=== PATIENT | male | born 1970 | race Caucasian/White ===

== ENCOUNTER 2020-12-01 06:30 | Emergency (ER) | payer SELFPAY ==
[2020-12-01] MEDS ORDERED: ONDANSETRON 4 MG/2 ML VIAL ONE (08:11)
[2020-12-01] MEDS ORDERED: MORPHINE 4 MG/ML SYR ONE (08:11)
--- NOTE | 2020-12-01 08:13 | RAD REPORT ---
EXAM DESCRIPTION: [place] Single View12/01/2020 7:30 am CLINICAL HISTORY: sob COMPARISON: November 29, 2020 FINDINGS: The lungs appear clear of acute infiltrate. The heart is normal size IMPRESSION: No acute abnormalities displayed
[2020-12-01 08:18] LABS: Protime INR 0.98
[2020-12-01 08:30] LABS: Absolute Lymphocytes (CBC) 0.8 K/uL (0.7-4.9); Basophils % 0.4 % (0-1.3); Hematocrit 48.1 % (39.6-49.0); Lymphocytes % 8.3 % (15.3-44.8); MPV 7.7 fL (7.6-11.3); RBC Red Blood Cell Count 5.45 M/uL (4.33-5.43)
[2020-12-01 08:34] LABS: ALT/SGPT 27 U/L (12-78); AST/SGOT 14 U/L (15-37); Albumin 3.8 g/dL (3.4-5.0); Alkaline Phosphatase 70 U/L (45-117); BUN Blood Urea Nitrogen 10 mg/dL (7-18); Bicarbonate 25 mmol/L (21-32); Bilirubin Direct 0.2 mg/dL (0-0.2); Bilirubin Total 0.7 mg/dL (0.2-1.0); Glucose Level 106 mg/dL (74-106); Magnesium 2.1 mg/dL (1.8-2.4); NT PRO-BNP 14 pg/mL (<125); Potassium 4.6 mmol/L (3.5-5.1); Protein, Total 7.5 g/dL (6.4-8.2); Sodium Level 143 mmol/L (136-145); Troponin (Emerg Dept Use Only) < 0.02 ng/mL (0.0-0.045)
[2020-12-01 09:02] LABS: Blood Morphology Comment NOT SEEN (NOT SEEN); Platelet Estimate ADEQ; Platelets, Giant PRESENT
--- NOTE | 2020-12-01 09:24 | RAD REPORT ---
EXAM DESCRIPTION: CT - Stone Protocol - 12/01/2020 9:00 am CLINICAL HISTORY: Abdominal pain. Left flank pain COMPARISON: None. TECHNIQUE: Computed axial tomography of the abdomen pelvis was obtained without oral or IV contrast. Lack of IV and oral contrast limits evaluation of solid organs, bowel, and vessels. Coronal reformat chris images were obtained and reviewed. All CT scans are performed using dose optimization technique as appropriate and may include automated exposure control or mA/KV adjustment according to patient size. FINDINGS: A renal calculus is not seen. An ureteral calculus is not noted. A bladder calculus is not present. The liver, spleen, pancreas and adrenals appear grossly normal There is no evidence of diverticulitis. Mild stranding within the mesentery of the left abdomen. A couple of small calcifications are present . Small inguinal hernias. Small umbilical hernia IMPRESSION: Negative for a genitourinary calculus Mild stranding within the mesentery of the left abdomen may indicate a mesenteritis
[2020-12-01] MEDS ORDERED: FENTANYL CITR 100 MCG/2 ML ONE (09:57)
[2020-12-01] MEDS ORDERED: DIAZEPAM 10 MG/2 ML INJ SYRINGE ONE (09:58)
[2020-12-01 12:55] LABS: Urine Blood Negative (Negative); Urine Glucose Negative (Negative); Urine Protein Negative (Negative); Urine Specific Gravity >=1.030 (1.005-1.030); Urine pH 5.5 (5.0-7.0)
--- NOTE | 2020-12-01 13:02 | EDPHYS ---
Physician Documentation [facility] Name: Ollie Cardona Age: 50 yrs Sex: Male : 1970 Arrival Date: 12/01/2020 Time: 06:34 Bed 13 Private MD: ED Physician Juma Miller HPI: 12/01 07:03 This 50 yrs old Male presents to ER via Wheelchair with complaints of Back jmm Pain, Cough. 07:03 Onset: The symptoms/episode began/occurred gradually, 1 week(s) ago. The pain does not jmm radiate. Associated signs and symptoms: Pertinent positives: Cough. This is this is a 50-year-old male no chronic medical conditions the presents emerge department with complaints of chronic cough which has been along 2 to 3months. Patient states that he recently finished a course of antibiotics. Also states he is tested negative for Covid. Patient states over the past week is developed lower back pain exacerbated by the cough. This morning patient after an episode of coughing developed more intense pain. Denies radiation of pain, denies urinary or fecal issues, fever. Historical: - Allergies: 06:58 No Known Allergies; df1 - Home Meds: 06:58 None [Active]; df1 - PMHx: 06:58 None; df1 - PSHx: 06:58 ACL left knee; Appendectomy; df1 - Immunization history:: Adult Immunizations not up to date, Client reports having NOT received the Covid vaccine. - Social history:: Smoking status: Patient denies any tobacco usage or history of. Patient/guardian denies using alcohol, street drugs. ROS: 07:03 Constitutional: Negative for fever, chills, and weight loss, Cardiovascular: Negative jmm for chest pain, palpitations, and edema. 07:03 Respiratory: Positive for cough. 07:03 Back: Positive for pain with movement. 07:03 All other systems are negative. Exam: 07:03 Constitutional: This is a well developed, well nourished patient who is awake, alert, jmm and in no acute distress. Head/Face: atraumatic. Eyes: EOMI, no conjunctival erythema appreciated ENT: Moist Mucus Membranes Neck: Trachea midline, Supple Chest/axilla: Normal chest wall appearance and motion. Cardiovascular: Regular rate and rhythm. No edema appreciated Respiratory: Normal respirations, no respiratory distress appreciated Abdomen/GI: Non distended, soft 07:03 Back: pain, that is moderate, of the lumbar area. 07:03 Musculoskeletal/extremity: ROM: intact in all extremities. 07:03 Skin: Appearance: Color: normal in color. 07:03 Neuro: Orientation: is normal, Mentation: is normal, Memory: is normal. 07:03 Psych: Behavior/mood is pleasant, cooperative. Vital Signs: 06:56 BP 130 / 81; Pulse 94; Resp 24; Temp 97.7(O); Pulse Ox 95% on R/A; Weight 108.86 kg; df1 Height 6 ft. 2 in. (187.96 cm); Pain 10/10; 07:48 BP 130 / 81; Pulse 81; Resp 20; Pulse Ox 93% ; Pain 10/10; tc5 10:09 BP 109 / 75; Pulse 81; Resp 16; Pulse Ox 92% ; Pain 4/10; tc5 11:15 BP 109 / 75; Pulse 67; Resp 16; Pulse Ox 91% ; tc5 12:16 BP 110 / 73; Pulse 63; Resp 16; Pulse Ox 95% ; Pain 0/10; tc5 13:28 BP 110 / 73; Pulse 61; Resp 18; Pulse Ox 95% ; Pain 0/10; tc5 06:56 Body Mass Index 30.81 (108.86 kg, 187.96 cm) df1 MDM: 07:03 Patient medically screened. carey 12:55 Data reviewed: vital signs, nurses notes. Counseling: I had a detailed discussion with carey the patient and/or guardian regarding: the historical points, exam findings, and any diagnostic results supporting the discharge/admit diagnosis, lab results, radiology results, the need for outpatient follow up, to return to the emergency department if symptoms worsen or persist or if there are any questions or concerns that arise at home. ED course: Pain is relieved in the ED. Patient describes the pain is spasming that grabs him. I do not suspect kidney stone, obstruction, cauda equina, dissection. . 12/01 07:03 Order name: Basic Metabolic Panel; Complete Time: 08:34 [facility] 12/01 07:03 Order name: CBC with Diff; Complete Time: 09:06 [facility] 12/01 07:03 Order name: LFT's; Complete Time: 08:34 [facility] 12/01 07:03 Order name: Magnesium; Complete Time: 08:34 [facility] 12/01 07:03 Order name: NT PRO-BNP; Complete Time: 08:34 [facility] 12/01 07:03 Order name: PT-INR; Complete Time: 08:32 [facility] 12/01 07:03 Order name: Troponin (emerg Dept Use Only); Complete Time: 08:34 [facility] 12/01 07:03 Order name: XRAY Chest (1 view); Complete Time: 08:15 [facility] 12/01 07:03 Order name: D-Dimer; Complete Time: 08:32 [facility] 12/01 08:19 Order name: SARS-COV-2 RT PCR; Complete Time: 09:16 [facility] 12/01 08:33 Order name: CT Stone Protocol; Complete Time: 09:25 [facility] 12/01 09:01 Order name: Manual Differential; Complete Time: 09:06 [facility] 12/01 12:55 Order name: Urine Dipstick-Ancillary; Complete Time: 13:03 [facility] 12/01 07:03 Order name: EKG; Complete Time: 07:04 [facility] 12/01 07:03 Order name: Cardiac monitoring; Complete Time: 08:09 [facility] 12/01 07:03 Order name: EKG - Nurse/Tech; Complete Time: 07:58 [facility] 12/01 07:03 Order name: IV Saline Lock; Complete Time: 08:09 [facility] 12/01 07:03 Order name: Labs collected and sent; Complete Time: 08:09 [facility] 12/01 07:03 Order name: O2 Per Protocol [facility] 12/01 07:03 Order name: O2 Sat Monitoring [facility] 12/01 09:51 Order name: Urine Dipstick-Ancillary (obtain specimen); Complete Time: 13:28 jmm Administered Medications: 08:08 Drug: Zofran (Ondansetron) 4 mg Route: IVP; Site: right hand; tc5 09:45 Follow up: Response: No adverse reaction tc5 08:09 Drug: morphine 4 mg Route: IVP; Site: right hand; tc5 09:46 Follow up: Response: No adverse reaction; Pain is unchanged, physician notified tc5 09:45 Drug: fentaNYL (PF) 50 mcg Route: IVP; Site: right hand; tc5 13:29 Follow up: Response: No adverse reaction tc5 09:45 Drug: Valium (diazepam) 5 mg Route: IVP; Site: right hand; tc5 13:28 Follow up: BP 110 / 73; Pulse 61 bpm; Resp 18 bpm; Pulse Ox 95% ; Pain 0/10 Adult tc5 Disposition Summary: 12/01/20 13:02 Discharge Ordered Location: Home jmm Condition: Stable jmm Diagnosis - Cough jmm - Muscle spasm of back jmm Followup: jmm - With: Private Physician - When: 2 - 3 days - Reason: Recheck today's complaints, Continuance of care, Re-evaluation by your physician Discharge Instructions: - Discharge Summary Sheet jmm - Muscle Cramps and Spasms jmm - Cough, Adult jmm Forms: - Medication Reconciliation Form jmm - Thank You Letter jmm - Antibiotic Education jmm - Prescription Opioid Use jmm Prescriptions: - Zanaflex 4 mg Oral Tablet - take 1 tablet by ORAL route every 8 hours As needed; 20 tablet; Refills: 0, jmm Product Selection Permitted Addendum: 12/04/2020 07:12 Co-signature as Attending Physician, Juma Miller MD. [facility] Signatures: Dispatcher [employer] EDMS Arnulfo Canales PA PA jmm Holmes, Maurice, MD MD 7 Dolly Garrett df1 Chelo Hightower RN RN tc5 Corrections: (The following items were deleted from the chart) 12/01 08:20 07:13 CORONAVIRUS+MR.LAB.BRZ ordered. EDMS EDMS
--- NOTE | 2020-12-01 13:02 | ER ---
Nurse's Notes [facility] Name: Ollie Cardona Age: 50 yrs Sex: Male : 1970 Arrival Date: 12/01/2020 Time: 06:34 Bed 13 Private MD: Diagnosis: Cough;Muscle spasm of back Presentation: 12/01 06:56 Chief complaint: Patient states: cough/back pain. Coronavirus screen: Vaccine status: df1 Patient reports being unvaccinated. The client reports previous COVID testing was negative. Date of collection: November 12, 2020. Ebola Screen: Patient negative for fever greater than or equal to 101.5 degrees Fahrenheit, and additional compatible Ebola Virus Disease symptoms Patient denies exposure to infectious person. Patient denies travel to an Ebola-affected area in the 21 days before illness onset. Initial Sepsis Screen: Does the patient meet any 2 criteria? No. Patient's initial sepsis screen is negative. Does the patient have a suspected source of infection? No. Patient's initial sepsis screen is negative. Risk Assessment: Do you want to hurt yourself or someone else? Patient reports no desire to harm self or others. 06:56 Method Of Arrival: Wheelchair df1 06:56 Acuity: LEXX 3 df1 07:03 Note Pt presents with 10/10 lumbar pain and cough. Dx with Pneumonia 1 week prior. Just df1 completed antibiotics. 07:47 Chief complaint:. tc5 Triage Assessment: 07:00 General: Appears uncomfortable, Behavior is calm, cooperative. Pain: Complains of pain df1 in lumbar area, left low back and right low back Pain does not radiate. Musculoskeletal: Reports pain in Lumbar back. Historical: - Allergies: 06:58 No Known Allergies; df1 - Home Meds: 06:58 None [Active]; df1 - PMHx: 06:58 None; df1 - PSHx: 06:58 ACL left knee; Appendectomy; df1 - Immunization history:: Adult Immunizations not up to date, Client reports having NOT received the Covid vaccine. - Social history:: Smoking status: Patient denies any tobacco usage or history of. Patient/guardian denies using alcohol, street drugs. Screenin:00 Abuse screen: Denies threats or abuse. Nutritional screening: No deficits noted. df1 Tuberculosis screening: No symptoms or risk factors identified. Fall Risk None identified. Assessment: 07:47 General: Appears distressed, Behavior is cooperative, appropriate for age, pt reports tc5 low back pain 10/10, states he has been coughing x 1 month, had PNA, has finished ABX, states still has cough, feels its probably allergies.. 11:14 General: pt pain has improved, states the coughing has increased, want to know if tc5 ok to give breathing tx, Arnulfo ROTHMAN ok with pt takinghis breathing tx.. 11:18 General: pt currently taking his home neb tx, albuterol and ipatropium.. tc5 13:29 Neuro: Oriented to person, place, time, situation, Appropriate for age. tc5 Vital Signs: 06:56 BP 130 / 81; Pulse 94; Resp 24; Temp 97.7(O); Pulse Ox 95% on R/A; Weight 108.86 kg; df1 Height 6 ft. 2 in. (187.96 cm); Pain 10/10; 07:48 BP 130 / 81; Pulse 81; Resp 20; Pulse Ox 93% ; Pain 10/10; tc5 10:09 BP 109 / 75; Pulse 81; Resp 16; Pulse Ox 92% ; Pain 4/10; tc5 11:15 BP 109 / 75; Pulse 67; Resp 16; Pulse Ox 91% ; tc5 12:16 BP 110 / 73; Pulse 63; Resp 16; Pulse Ox 95% ; Pain 0/10; tc5 13:28 BP 110 / 73; Pulse 61; Resp 18; Pulse Ox 95% ; Pain 0/10; tc5 06:56 Body Mass Index 30.81 (108.86 kg, 187.96 cm) df1 ED Course: 06:34 Patient arrived in ED. bp1 06:36 Arnulfo Canales PA is PHCP. jmm 06:36 Juma Miller MD is Attending Physician. jmm 06:58 Triage completed. df1 07:01 Arm band placed on right wrist. df1 07:01 Patient has correct armband on for positive identification. Placed in gown. Bed in low df1 position. Call light in reach. Side rails up X 1. 07:02 No provider procedures requiring assistance completed. df1 07:30 XRAY Chest (1 view) In Process Unspecified. EDMS 07:33 Chelo Hightower, RN is Primary Nurse. tc5 07:48 EKG done, by ED staff, reviewed by Arnulfo ROTHMAN. 3 08:09 Inserted saline lock: 20 gauge in right hand, using aseptic technique. Blood collected. tc5 09:00 CT Stone Protocol In Process Unspecified. EDMS 13:29 IV discontinued, intact, bleeding controlled, No redness/swelling at site. Pressure tc5 dressing applied. Administered Medications: 08:08 Drug: Zofran (Ondansetron) 4 mg Route: IVP; Site: right hand; tc5 09:45 Follow up: Response: No adverse reaction tc5 08:09 Drug: morphine 4 mg Route: IVP; Site: right hand; tc5 09:46 Follow up: Response: No adverse reaction; Pain is unchanged, physician notified tc5 09:45 Drug: fentaNYL (PF) 50 mcg Route: IVP; Site: right hand; tc5 13:29 Follow up: Response: No adverse reaction tc5 09:45 Drug: Valium (diazepam) 5 mg Route: IVP; Site: right hand; tc5 13:28 Follow up: BP 110 / 73; Pulse 61 bpm; Resp 18 bpm; Pulse Ox 95% ; Pain 0/10 Adult tc5 Outcome: 13:02 Discharge ordered by . [facility] 13:29 Discharged to home ambulatory, with family. tc5 13:29 Condition: stable 13:29 Discharge instructions given to patient, family. 13:38 Patient left the ED. tc5 Signatures: Dispatcher [employer] EDWA Arnulfo Canales PA PA [facility] Renetta Mendez 3 Wendy Dillon Dawn df1 Chelo Hightower, LAUREN RN tc5 Corrections: (The following items were deleted from the chart) 08:20 08:09 CORONAVIRUS+MR.LABKASHIF drawn and sent. tc5 EDMS
[2020-12-01 13:55] VITALS: TEMP 97.7
[2020-12-01 14:00] VITALS: BP 110/73; O2SAT 95
--- NOTE | 2020-12-02 09:00 | EKG ---
Test Date: 2020-12-01 Test Time: 07:45:39 Face And Fill Packer: YAN MEASUREMENT RESULTS: Intervals: Rate: 65 MO: 150 QRSD: 78 QT: 368 QTc: 382 [place]: P: 55 MO: 150 QRS: 43 T: 55 INTERPRETIVE STATEMENTS: Normal sinus rhythm Low voltage QRS Borderline ECG No previous ECG available for comparison Electronically Signed On 12-02-20 08:57:25 CDT by Daren Farmer
== END 2020-12-01 13:38 | disposition home or self-care (01) ==
LOC: ER 06:30
DX: R05.9 Cough, unspecified (principal); M62.830 Muscle spasm of back; Z20.822 Contact with and (suspected) exposure to COVID-19
CPT/HCPCS: 36415; 71045; 74176; 76377; 80048; 80076; 81003; 83735; 83880; 84484; 85025; 85379; 85610; 93005; 96374; 96375; 99284; J2405; J3010; J3360; U0003

== ENCOUNTER 2020-12-02 18:25 | Inpatient (IN) | payer SELFPAY ==
[2020-12-02 19:04] LABS: Absolute Lymphocytes (CBC) 1.9 K/uL (0.7-4.9); Basophils % 0.3 % (0-1.3); Hematocrit 51.8 % (39.6-49.0); Lymphocytes % 19.1 % (15.3-44.8); MPV 7.7 fL (7.6-11.3); RBC Red Blood Cell Count 5.83 M/uL (4.33-5.43)
[2020-12-02 19:10] LABS: Protime INR 1.02
[2020-12-02] MEDS ORDERED: ONDANSETRON 4 MG/2 ML VIAL ONE (19:21)
[2020-12-02] MEDS ORDERED: PANTOPRAZOLE 40 MG INJ ONE (19:21)
[2020-12-02] MEDS ORDERED: BENZONATATE 100 MG CAP PO ONE (19:21)
[2020-12-02] MEDS ORDERED: NA CHLORIDE 0.9% 1,000 ML ONE (19:21)
--- NOTE | 2020-12-02 19:21 | RAD REPORT ---
EXAM DESCRIPTION: RAD - Chest Single View - 12/02/2020 7:00 pm CLINICAL HISTORY: Cough;SOB COMPARISON: December 01 TECHNIQUE: AP portable chest image was obtained 12/02/2020 7:00 pm . FINDINGS: No new mass or consolidation. Interstitial markings are slightly increased from comparison . Heart and vasculature are normal. No measurable pleural effusion and no pneumothorax. No acute bony abnormality seen. No acute aortic findings suspected. IMPRESSION: Interstitial markings are fractionally increased over the comparison. Findings support a mild interstitial edema or infiltrate.
[2020-12-02 19:32] LABS: ALT/SGPT 28 U/L (12-78); AST/SGOT 22 U/L (15-37); Alkaline Phosphatase 78 U/L (45-117); BUN Blood Urea Nitrogen 12 mg/dL (7-18); Bicarbonate 28 mmol/L (21-32); Bilirubin Direct 0.2 mg/dL (0-0.2); Bilirubin Total 0.8 mg/dL (0.2-1.0); Glucose Level 120 mg/dL (74-106); Magnesium 2.2 mg/dL (1.8-2.4); NT PRO-BNP 27 pg/mL (<125); Potassium 4.5 mmol/L (3.5-5.1); Protein, Total 7.8 g/dL (6.4-8.2); Sodium Level 140 mmol/L (136-145); Troponin (Emerg Dept Use Only) < 0.02 ng/mL (0.0-0.045)
[2020-12-02] MEDS ORDERED: LEVALBUTEROL 0.63 MG/3 ML NEB ONE (20:11)
[2020-12-02] MEDS ORDERED: LEVALBUTEROL 1.25 MG/3 ML NEB ONE (20:16)
--- NOTE | 2020-12-02 21:12 | RAD REPORT ---
EXAM DESCRIPTION: CT - Chest For Pe Angio - 12/02/2020 8:21 pm CLINICAL HISTORY: Cough;SOB COMPARISON: Chest Single View dated 12/02/2020 TECHNIQUE: Dynamically enhanced 3 mm thick images of the chest were obtained during administration o f approximately 150mL Isovue 370 IV contrast. Coronal and oblique MIP reconstruction images were gene rated and reviewed. Exam utilizes a protocol to evaluate the pulmonary arterial tree. All CT scans are performed using dose optimization technique as appropriate and may include automated exposure control or mA/KV adjustment according to patient size. FINDINGS: No pulmonary emboli are identified. The aorta as imaged shows no acute or suspicious finding. No pericardial thickening or effusion. No focal pneumonia or airspace opacification seen. Interstitial markings are mildly prominent accentu ated in part due to motion. No pleural effusion or pleural thickening. No mediastinal or hilar suspicious masses. No chest wall masses or abnormal axillary lymphadenopathy. IMPRESSION: No pulmonary emboli identified. No focal mass or consolidation. Prominence of the interstitial pattern could indicate mild edema or interstitial infiltrate.
[2020-12-02 21:25] LABS: Blood Morphology Comment NOT SEEN (NOT SEEN); Platelet Estimate ADEQ
--- NOTE | 2020-12-02 21:26 | EDPHYS ---
Physician Documentation [facility] Name: Ollie Cardona Age: 50 yrs Sex: Male : 1970 Arrival Date: 12/02/2020 Time: 18:28 Bed 25 Private MD: ED Physician Amalia Jaquez HPI: 12/02 18:50 This 50 yrs old Male presents to ER via Ambulatory with complaints of High cp heart rate,Low O2. 18:50 The patient has shortness of breath at rest. cp 18:50 Onset: The symptoms/episode began/occurred 1 week(s) ago, and became worse today. cp Duration: The symptoms are continuous, and are steadily getting worse. Associated signs and symptoms: Pertinent positives: non-productive cough, palpitations, Pertinent negatives: fever. Severity of symptoms: in the emergency department the symptoms are unchanged despite home interventions. The patient has been recently seen at the [facility] Emergency Department, yesterday, for similar complaints. Historical: - Allergies: 18:37 No Known Allergies; ll1 - PMHx: 18:37 Pneumonia; ll1 - PSHx: 18:37 ACL left knee; Appendectomy; ll1 - Immunization history:: Client reports receiving the 2nd dose of the Covid vaccine. - Social history:: Smoking status: Patient denies any tobacco usage or history of. ROS: 18:55 Constitutional: Negative for chills, fever, poor PO intake. cp 18:55 Eyes: Negative for injury, pain, redness, and discharge. cp 18:55 ENT: Negative for ear pain, sore throat, difficulty swallowing, difficulty handling secretions. 18:55 Cardiovascular: Positive for palpitations. 18:55 Respiratory: Positive for cough, "sounds productive", shortness of breath, at rest. 18:55 Abdomen/GI: Positive for nausea, Negative for abdominal pain, diarrhea, constipation. 18:55 Neuro: Negative for altered mental status, headache, syncope, weakness. 18:55 All other systems are negative. Exam: 19:00 Constitutional: The patient appears alert, awake, non-toxic, well developed, well cp nourished, diaphoretic, in obvious distress, moderately distressed, pale. 19:00 Head/Face: Normocephalic, atraumatic. cp 19:00 Eyes: Periorbital structures: appear normal, Pupils: equal, round, and reactive to light and accomodation, Extraocular movements: intact throughout, Conjunctiva: normal, no exudate, no injection, Sclera: no appreciated abnormality, Lids and lashes: appear normal, bilaterally. 19:00 ENT: External ear(s): are unremarkable, Nose: is normal, Mouth: Lips: moist, Oral mucosa: pink and intact, moist, Posterior pharynx: Airway: no evidence of obstruction, patent. 19:00 Neck: ROM/movement: is normal, is supple, without pain, no range of motions limitations, no meningismus, no nuchal rigidity. 19:00 Chest/axilla: Inspection: normal, Palpation: is normal, no crepitus, no tenderness. 19:00 Cardiovascular: Rate: tachycardic, Rhythm: regular, Edema: is not appreciated, JVD: is not appreciated. 19:00 Respiratory: moderate respiratory distress is noted, Respirations: labored breathing, that is mild, intercostal retractions, are absent, Breath sounds: bronchial sounds, that are mild, are heard diffusely, decreased breath sounds, that are mild, stridor, is not appreciated, wheezing: is not appreciated. 19:00 Abdomen/GI: Inspection: abdomen appears normal, Bowel sounds: active, all quadrants, Palpation: abdomen is soft and non-tender, in all quadrants. 19:00 Back: CVA tenderness, is absent. 19:00 Skin: cellulitis, is not appreciated, no rash present. 19:00 Neuro: Orientation: to person, place \\T\\ time. Mentation: is normal, Motor: moves all fours, strength is normal, Sensation: is normal. 19:15 ECG was reviewed by the Attending Physician. cp Vital Signs: 18:34 BP 126 / 108; Pulse 122; Resp 30; Pulse Ox 91% on R/A; Weight 108.86 kg; Height 6 ft. 2 ll1 in. (187.96 cm); Pain 0/10; 18:47 Temp 97.9(O); ll1 19:03 BP 125 / 87; Pulse 105; Resp 19; Temp 97.9(O); Pulse Ox 95% on 3 lpm NC; Pain 0/10; bc5 19:03 BP 136 / 64; Pulse 99; Resp 16; Pulse Ox 95% on 4 lpm NC; Pain 0/10; bc5 23:17 BP 121 / 64; Pulse 85; Resp 16; Temp 98.6(O); Pulse Ox 96% on 4 lpm NC; Pain 0/10; bc5 12/03 01:40 BP 106 / 60; Pulse 76; Resp 15; Pulse Ox 96% on 4 lpm NC; Pain 0/10; bc5 18 18:34 Body Mass Index 30.81 (108.86 kg, 187.96 cm) ll1 MDM: 12/02 18:39 Patient medically screened. cp 21:25 Data reviewed: vital signs, nurses notes, lab test result(s), EKG, radiologic studies, cp CT scan, plain films. 21:25 Test interpretation: by ED physician or midlevel provider: ECG, plain radiologic cp studies. Counseling: I had a detailed discussion with the patient and/or guardian regarding: the historical points, exam findings, and any diagnostic results supporting the discharge/admit diagnosis, lab results, radiology results, the need for further work-up and treatment in the hospital. Physician consultation: Yasmani ROTHMAN was called at 21:25, was contacted at 21:25, regarding admission, to the telemetry unit. patient's condition. 12/02 18:38 Order name: Basic Metabolic Panel cp 12/02 18:38 Order name: CBC with Diff cp 12/02 18:38 Order name: LFT's cp 12/02 18:38 Order name: Magnesium cp 12/02 18:38 Order name: NT PRO-BNP cp 12/02 18:38 Order name: PT-INR; Complete Time: 19:22 cp 12/02 18:38 Order name: Troponin (emerg Dept Use Only); Complete Time: 19:42 cp 12/02 18:38 Order name: Blood Culture Adult (2) cp 12/02 18:38 Order name: Procalcitonin; Complete Time: 21:17 cp 12/02 18:38 Order name: Lactate; Complete Time: 19:42 cp 12/02 18:38 Order name: Urine Microscopic Only cp 12/02 18:39 Order name: Basic Metabolic Panel; Complete Time: 19:42 EDMS 12/02 19:42 Interpretation: Normal except: GLUC 120; GFR 59. cp 12/02 18:39 Order name: CBC with Automated Diff EDMS 12/02 19:42 Interpretation: Normal except: RBC 5.83; HCT 51.8; PLT 273; EOSINOPHIL % 22.5; EOSA 2.3.cp 12/02 18:39 Order name: Liver (Hepatic) Function; Complete Time: 19:42 EDMS 12/02 19:43 Interpretation: Normal except: GLOB 3.8. cp 12/02 18:38 Order name: XRAY Chest (1 view); Complete Time: 19:22 cp 12/02 18:39 Order name: Magnesium; Complete Time: 19:42 EDMS 12/02 18:39 Order name: NT PRO-BNP; Complete Time: 19:42 EDMS 12/02 19:43 Interpretation: Reviewed. cp 12/02 19:44 Order name: CT Chest For PE Angio; Complete Time: 21:17 cp 12/02 20:53 Order name: Manual Differential EDMS 12/03 00:55 Order name: SARS-COV-2 RT PCR EDMS 12/02 18:38 Order name: EKG; Complete Time: 18:39 cp 12/02 18:38 Order name: Cardiac monitoring; Complete Time: 19:09 cp 12/02 18:38 Order name: EKG - Nurse/Tech; Complete Time: 19:09 cp 12/02 18:38 Order name: IV Saline Lock; Complete Time: 18:48 cp 12/02 18:38 Order name: Labs collected and sent; Complete Time: 18:48 cp 12/02 18:38 Order name: O2 Per Protocol; Complete Time: 18:48 cp 12/02 18:38 Order name: O2 Sat Monitoring; Complete Time: 18:48 cp EC:15 Rate is 102 beats/min. Rhythm is regular. IA interval is normal. QRS interval is cp normal. QT interval is normal. T waves are Inverted in lead aVR. Interpreted by me. Reviewed by me. Administered Medications: 19:03 Drug: NS 0.9% 500 ml Route: IV; Rate: bolus; Site: left antecubital; ap3 20:26 Follow up: IV Status: Completed infusion; IV Intake: 500ml [facility] 19:03 Drug: ProTONIX (pantoprazole) 40 mg Route: IVP; Site: left antecubital; ap3 20:26 Follow up: Response: No adverse reaction [facility] 19:03 Drug: Zofran (Ondansetron) 4 mg Route: IVP; Site: left antecubital; ap3 20:26 Follow up: Response: Nausea is decreased bc5 19:25 Not Given (Physician Discretion): NS 0.9% 500 ml IV at 125 ml/hr continuous cp 19:43 Drug: Tessalon Perle (benzonatate) 200 mg Route: PO; bc5 20:27 Follow up: Response: Marked relief of symptoms bc5 19:50 Drug: Xopenex (levalbuterol) (3) 1.25 mg Route: Inhalation; bc5 20:58 Follow up: Response: Marked relief of symptoms bc5 21:05 Not Given (Physician Discretion): Tussionex Pennkinetic ER bc5 (chlorpheniramine-hydrocodone) Suspension 5 ml PO once 21:53 Drug: SOLU-Medrol (methylPrednisoLONE) 125 mg Route: IVP; Site: left antecubital; bc5 21:54 Follow up: Response: No adverse reaction bc5 21:54 Drug: Rocephin (cefTRIAXone) 1 grams Route: IV; Rate: calculated rate; Site: left bc5 antecubital; 23:17 Follow up: IV Status: Completed infusion; IV Intake: 50ml bc5 23:17 Follow up: Response: No adverse reaction bc5 21:54 Drug: Zithromax (azithromycin) 500 mg Route: PO; bc5 23:17 Follow up: Response: No adverse reaction bc5 Disposition: 12/03 14:26 Co-signature as Attending Physician, Amalia Jaquez MD I agree with the assessment and sp3 plan of care. Disposition Summary: 12/02/20 21:26 Hospitalization Ordered Hospitalization Status: Inpatient Admission cp Location: Telemetry/[facility] (Inpatient) cp Condition: Stable cp Problem: new cp Symptoms: have improved cp Bed/Room Type: Standard cp Provider: Rosales Larios(12/03/20 00:20) cp Room Assignment: [facility](12/03/20 01:47) cg Diagnosis - Hypoxemia cp - Other pneumonia, unspecified organism cp Forms: - Medication Reconciliation Form cp - SBAR form cp Signatures: Dispatcher [employer] EDJeff Davis PA PA cp Demetrice Serrano RN RN cg Amanda Elmore RN RN ap3 Sahil Jimenez RN RN ll1 Amalia Jaquez MD MD sp3 Brenda Long, RN RN bc5 Corrections: (The following items were deleted from the chart) 12/02 23:04 21:26 cp cg 23:37 23:04 406 cg cg 12/03 00:20 12/02 21:26 Yasmani Dacosta cp 12/03 01:47 12/02 23:37 cg cg
--- NOTE | 2020-12-02 21:26 | ER ---
Nurse's Notes [facility] Name: Ollie Cardona Age: 50 yrs Sex: Male : 1970 Arrival Date: 12/02/2020 Time: 18:28 Bed 25 Private MD: Diagnosis: Hypoxemia;Other pneumonia, unspecified organism Presentation: 12/02 18:34 Chief complaint: Patient states: HR 130's at home today, O2 sat 89% so they came back ll1 in for eval. Was here yesterday, and told his pneumonia was getting better. Finished his antibiotics Wednesday. Coronavirus screen: Vaccine status: Patient reports receiving the 2nd dose of the covid vaccine. Client denies travel out of the [place] in the last 14 days. congestion, cough unrelated to allergies, difficulty breathing, shortness of breath, Client presents with at least one sign or symptom that may indicate coronavirus-19. Standard/surgical mask placed on the client. Ebola Screen: Patient denies travel to an Ebola-affected area in the 21 days before illness onset. Initial Sepsis Screen: Does the patient meet any 2 criteria? RR > 20 per min. HR > 90 bpm. Yes Does the patient have a suspected source of infection? Yes: Productive cough/pneumonia. Risk Assessment: Do you want to hurt yourself or someone else? Patient reports no desire to harm self or others. Onset of symptoms was December 01, 2020. 18:34 Method Of Arrival: Ambulatory ll1 18:34 Acuity: LEXX 2 ll1 Historical: - Allergies: 18:37 No Known Allergies; ll1 - PMHx: 18:37 Pneumonia; ll1 - PSHx: 18:37 ACL left knee; Appendectomy; ll1 - Immunization history:: Client reports receiving the 2nd dose of the Covid vaccine. - Social history:: Smoking status: Patient denies any tobacco usage or history of. Screenin:50 Abuse screen: Denies threats or abuse. Nutritional screening: No deficits noted. ap3 Tuberculosis screening: No symptoms or risk factors identified. Fall Risk None identified. Assessment: 18:48 General: Appears comfortable, Behavior is cooperative, anxious, Reports chills for ap3 feeling ill for fatigue for. Pain: Denies pain. Neuro: Level of Consciousness is awake, alert, obeys commands. Cardiovascular: patient denies chest pain. . Respiratory: Airway is patent Respiratory effort is labored, Respiratory pattern is tachypnea Breath sounds with wheezes bilaterally. Respiratory: Parent/caregiver reports the patient having shortness of breath cough that is. GI: Reports nausea, vomiting. Derm: Skin is diaphoretic. 21:00 Reassessment: Pt sitting laying down on stretcher with eyes open, RR is even and bc5 unlabored, Pt reports "feeling better" after breathing treatment, SpO2 noted to be 89 on RA, Pt placed back on O2 with improvement to 95% on 4 L. Provider aware. 23:30 Reassessment: PT to Covid room, Pt was covin negative yesterday, House sup aware and bc5 will change bed pending new Covid results. Vital Signs: 18:34 BP 126 / 108; Pulse 122; Resp 30; Pulse Ox 91% on R/A; Weight 108.86 kg; Height 6 ft. 2 ll1 in. (187.96 cm); Pain 0/10; 18:47 Temp 97.9(O); ll1 19:03 BP 125 / 87; Pulse 105; Resp 19; Temp 97.9(O); Pulse Ox 95% on 3 lpm NC; Pain 0/10; bc5 19:03 BP 136 / 64; Pulse 99; Resp 16; Pulse Ox 95% on 4 lpm NC; Pain 0/10; bc5 23:17 BP 121 / 64; Pulse 85; Resp 16; Temp 98.6(O); Pulse Ox 96% on 4 lpm NC; Pain 0/10; bc5 12/03 01:40 BP 106 / 60; Pulse 76; Resp 15; Pulse Ox 96% on 4 lpm NC; Pain 0/10; bc5 12/02 18:34 Body Mass Index 30.81 (108.86 kg, 187.96 cm) ll1 ED Course: 12/02 18:28 Patient arrived in ED. mr 18:30 Jeff Beck PA is PHCP. cp 18:30 Amalia Jaquez MD is Attending Physician. cp 18:34 Arm band placed on Patient placed in an exam room, on a stretcher. ll1 18:36 Triage completed. ll1 18:48 Amanda Elmore, LAUREN is Primary Nurse. ap3 18:50 Patient has correct armband on for positive identification. Bed in low position. Call ap3 light in reach. Side rails up X2. Adult w/ patient. environmental monitoring technician on. Pulse ox on. NIBP on. Door closed. Noise minimized. 19:00 XRAY Chest (1 view) In Process Unspecified. EDMS 19:12 Initial lab(s) drawn, by ED staff, sent to lab. EKG done, by ED staff, reviewed by mh5 Jeff Aburto MD. 20:21 CT Chest For PE Angio In Process Unspecified. EDMS 21:25 Yasmani Dacosta PA is Hospitalizing Provider. cp 23:18 No provider procedures requiring assistance completed. Patient admitted, IV remains in bc5 place. 12/03 00:20 Rosales Larios is Hospitalizing Provider. cp Administered Medications: 12/02 19:03 Drug: NS 0.9% 500 ml Route: IV; Rate: bolus; Site: left antecubital; ap3 20:26 Follow up: IV Status: Completed infusion; IV Intake: 500ml bc5 19:03 Drug: ProTONIX (pantoprazole) 40 mg Route: IVP; Site: left antecubital; ap3 20:26 Follow up: Response: No adverse reaction bc5 19:03 Drug: Zofran (Ondansetron) 4 mg Route: IVP; Site: left antecubital; ap3 20:26 Follow up: Response: Nausea is decreased bc5 19:25 Not Given (Physician Discretion): NS 0.9% 500 ml IV at 125 ml/hr continuous cp 19:43 Drug: Tessalon Perle (benzonatate) 200 mg Route: PO; bc5 20:27 Follow up: Response: Marked relief of symptoms bc5 19:50 Drug: Xopenex (levalbuterol) (3) 1.25 mg Route: Inhalation; bc5 20:58 Follow up: Response: Marked relief of symptoms bc5 21:05 Not Given (Physician Discretion): Tussionex Pennkinetic ER bc5 (chlorpheniramine-hydrocodone) Suspension 5 ml PO once 21:53 Drug: SOLU-Medrol (methylPrednisoLONE) 125 mg Route: IVP; Site: left antecubital; bc5 21:54 Follow up: Response: No adverse reaction bc5 21:54 Drug: Rocephin (cefTRIAXone) 1 grams Route: IV; Rate: calculated rate; Site: left bc5 antecubital; 23:17 Follow up: IV Status: Completed infusion; IV Intake: 50ml bc5 23:17 Follow up: Response: No adverse reaction bc5 21:54 Drug: Zithromax (azithromycin) 500 mg Route: PO; bc5 23:17 Follow up: Response: No adverse reaction bc5 Intake: 20:26 IV: 500ml; Total: 500ml. bc5 23:17 IV: 50ml; Total: 550ml. bc5 Outcome: 21:26 Decision to Hospitalize by Provider. cp 23:21 Condition: stable bc5 23:21 Admitted to Med/surg accompanied by tech, family with patient, room 406, with oxygen, bc5 with chart, Report called to Mily AGUILAR 12/03 02:09 Patient left the ED. bc5 Signatures: Dispatcher [employer] EDMA PalafoxMarium shaw Corey, PA PA cp Martinez, Maria Amanda Reagan RN RN [id number] Sahil Jimenez RN RN ll1 Brenda Long RN RN bc5
[2020-12-02] MEDS ORDERED: METHYLPREDNISOLONE 125 MG INJ ONE (22:08)
[2020-12-02] MEDS ORDERED: NA CHLORIDE 0.9% 50 ML ONE (22:08)
[2020-12-02] MEDS ORDERED: AZITHROMYCIN 250 MG TAB ONE (22:08)
[2020-12-02] MEDS ORDERED: CEFTRIAXONE 1000 MG/VIAL ONE (22:08)
--- NOTE | 2020-12-02 23:10 | P.HP ---
Certification for Inpatient Patient admitted to: Observation With expected LOS: <2 Midnights Patient will require the following post-hospital care: None Practitioner: I am a practitioner with admitting privileges, knowledge of patient current condition, hospital course, and medical plan of care. Services: Services provided to patient in accordance with Admission requirements found in Title 42 Section 412.3 of the Code of Federal Regulations Patient History Date of Service: 12/02/20 Reason for admission: pneumonia History of Present Illness: Mr. Cardona is a 50 yo M who presents with chronic cough, hypoxia and tachycardia. His cough began in the middle of September. He first went to urgent care mid October and was prescribed breathing treatments. After no improvement, he returned to urgent care and was diagnosed with pneumonia and prescribed a Zpack. He had repeat CXR done with PCP and was told the pneumonia was resolved. He came to the ED yesterday for worsening cough and back spasms. Presents with same complaints today, now tachycardic and hypoxic to 88%. He reports pleuriti c pain, dizziness, lightheadedness, cold sweats, pallor. He rep orts symptoms similar to this a few years ago. Denies smoking. CTPE IMPRESSION: No pulmonary emboli identified. No focal mass or consolidation. Prominence of the interstitial pattern could indicate mild edema or interstitial infiltrate. - Past Medical/Surgical History Has patient received pneumonia vaccine in the past: No Diabetic: No Past Medical History: Patient denies medical history -: appy -: ACL repair - Family History Father -: Heart disease Mother -: Cancer - Social History Smoking Status: Never smoker Alcohol use: No CD- Drugs: No Caffeine use: No Place of Residence: Home Review of Systems 10-point ROS is otherwise unremarkable General: Sweats, As per HPI Eyes: Unremarkable ENT: Nose Congestion, As per HPI Respiratory: Cough, Shortness of Breath, SOB with Excertion, Pleuritic Pain, Wheezing, As per HPI Cardiovascular: Unremarkable Gastrointestinal: Unremarkable Genitourinary: As per HPI Musculoskeletal: Back Pain Integumentary: Unremarkable Neurological: Unremarkable Lymphatics: Unremarkable Physical Examination - Physical Exam General: Alert, In no apparent distress HEENT: Atraumatic, PERRLA, Mucous membr. moist/pink, EOMI, Sclerae nonicteric Neck: Supple, 2+ carotid pulse no bruit, No LAD, Without JVD or thyroid abnormality Respiratory: Diminished, Expiratory wheezes, Rhonchi/gurgles Cardiovascular: No edema, Regular rate/rhythm, Normal S1 S2 Capillary refill: <2 Seconds Gastrointestinal: Normal bowel sounds, No tenderness Musculoskeletal: No tenderness Integumentary: No rashes Neurological: Normal speech, Normal strength at 5/5 x4 extr, Normal tone, Normal affect Lymphatics: No axilla or inguinal lymphadenopathy - Studies Laboratory Data (last 24 hrs) 12/02/20 18:41: PT 11.7, INR 1.02 12/02/20 18:41: WBC 10.10, Hgb 17.1, Hct 51.8 H, Plt Count 273 D 12/02/20 18:41: Sodium 140, Potassium 4.5, BUN 12, Creatinine 1.28, Glucose 120 H, Magnesium 2.2, Total Bilirubin 0.8, AST 22, ALT 28, Alkaline Phosphatase 78 Assessment and Plan - Problems (Diagnosis) (1) Pneumonia Current Visit: Yes Status: Acute Qualifiers: Pneumonia type: due to unspecified organism Laterality: unspecified laterality Lung location: unspecified part of lung Qualified Code(s): J18.9 - Pneumonia, unspecified organism - Plan RSV and flu pending continue IV steroids and IV antibiotics, nebulizer treatments, antitussives continue O2 as needed continue IV fluids DVT ppx Discharge Plan: Home Plan to discharge in: 24 Hours - Advance Directives Does patient have a Living Will: No Does patient have a Durable POA for Healthcare: No - Code Status/Comfort Care Code Status Assessed: Yes (full code ) Critical Care: No Time Spent Managing Pts Care (In Minutes): 70
[2020-12-03] MEDS ORDERED: ACETAMINOPHEN 500 MG TAB PO PRN (02:20)
[2020-12-03] MEDS ORDERED: ONDANSETRON 4 MG/2 ML VIAL IV PRN (02:20)
[2020-12-03 02:33] VITALS: BMI 31.1
[2020-12-03 03:30] LABS: Albumin 3.7 g/dL (3.4-5.0); Bilirubin Total 0.6 mg/dL (0.2-1.0); Magnesium 2.1 mg/dL (1.8-2.4); Phosphorus 1.7 mg/dL (2.5-4.9); Potassium 4.2 mmol/L (3.5-5.1); Protein, Total 7.2 g/dL (6.4-8.2)
[2020-12-03 03:52] LABS: Absolute Lymphocytes (CBC) 0.4 K/uL (0.7-4.9); Basophils % 0.3 % (0-1.3); Hematocrit 46.5 % (39.6-49.0); Lymphocytes % 3.6 % (15.3-44.8); MPV 7.9 fL (7.6-11.3); RBC Red Blood Cell Count 5.22 M/uL (4.33-5.43)
[2020-12-03 03:58] LABS: Urine Bacteria <20 /HPF (NONE SEEN); Urine RBC <5 /HPF (NONE SEEN)
[2020-12-03 04:39] LABS: Blood Morphology Comment NOT SEEN (NOT SEEN); Platelet Estimate ADEQ
[2020-12-03] MEDS: ENOXAPARIN 40 MG/0.4 ML SQ SCH (07:55)
[2020-12-03] MEDS: METHYLPREDNISOLONE 125 MG INJ IV SCH ×3 (07:55→16:52)
[2020-12-03] MEDS: BENZONATATE 100 MG CAP PO PRN (07:55)
[2020-12-03] MEDS: CEFTRIAXONE 1 GM/NS 50 ML 1 GM/50 ML BAG IV SCH (08:21)
[2020-12-03] MEDS: AZITHROMYCIN IV 500 MG in NA CHLORIDE 0.9% 250 ML IVPB SCH (08:21)
[2020-12-03] MEDS: NA CHLORIDE 0.9% 1,000 ML IV SCH ×2 (08:23→12:20)
[2020-12-03] MEDS ORDERED: INFLUENZA VACCINE (for 6+ mo) 0.5 ML DOSE IMVAC ONE (10:00)
[2020-12-03] MEDS ORDERED: PNEUMOCOCCAL VACCINE 0.5 ML IMVAC ONE (10:00)
[2020-12-03] MEDS: FUROSEMIDE 40 MG/4 ML VIAL IV SCH ×2 (12:38→16:53)
--- NOTE | 2020-12-03 15:35 | P.PN ---
Subjective Date of Service: 12/03/20 Chief Complaint: pneumonia Patient complaining of intermittent cough with pleuritic chest pain. He is currently needing 4-5 L of oxygen by nasal cannula. No recorded fever. Physical Examination - Vital Signs Temperature: 98.1 F Blood Pressure: 111/65 Pulse: 97 Respirations: 18 Pulse Ox (%): 95 - Studies Laboratory Data (last 24 hrs) 12/03/20 02:54: Sodium 138, Potassium 4.2, BUN 13, Creatinine 1.43 H, Glucose 186 H, Phosphorus 1.7 L, Magnesium 2.1, Total Bilirubin 0.6, AST 17, ALT 24, Alkaline Phosphatase 68 12/03/20 02:54: WBC 10.10, Hgb 15.7, Hct 46.5, Plt Count 188 D 12/02/20 18:41: PT 11.7, INR 1.02 12/02/20 18:41: WBC 10.10, Hgb 17.1, Hct 51.8 H, Plt Count 273 D 12/02/20 18:41: Sodium 140, Potassium 4.5, BUN 12, Creatinine 1.28, Glucose 120 H, Magnesium 2.2, Total Bilirubin 0.8, AST 22, ALT 28, Alkaline Phosphatase 78 Assessment And Plan - Current Problems (Diagnosis) (1) Acute respiratory failure with hypoxia Current Visit: Yes Status: Acute (2) Reactive airway disease Current Visit: Yes Status: Acute - Plan Physical examination General: Not in acute distress, well built. Eyes: AMBAR, EOMI, anicteric sclera. Conjunctiva not pale. ENT: Moist oral mucosa, pharynx is clear, no exudate, no erythema. Neck: Supple, no lymphadenopathy, no neck mass. Chest: Symmetrical breathing movement. Chest wall is nontender to palpation. Lungs: Crackles heard on the right base. Adequate breath sounds bilaterally. No rhonchi. Heart: Heart sounds 1 and 2 heard and normal, normal rate, regular rhythm. No murmur. Abdomen: Soft, nondistended, nontender, normal bowel sounds, no organomegaly, no costovertebral angle tenderness. Extremities: No pitting edema bilateral lower extremities, no calf tenderness bilaterally lower extremities, no digital cyanosis. Lymphatics: No enlarged lymph nodes in the neck or clavicular area. Neurology: Oriented x3, no focal motor deficits, no sensory deficits. Psychiatry: Normal thought content, normal behavior, no agitated. Skin: Warm and dry. No rashes or ulcers. Assessment: Acute respiratory failure with hypoxia. Reactive airway disease. Pneumonia Plan: Continue antibiotics Trial of IV Lasix IV steroid Wean oxygen as tolerated. Monitor CBC and blood chemistry. Pulmonary consult.
--- NOTE | 2020-12-03 16:44 | EKG ---
Test Date: 2020-12-02 Test Time: 19:06:21 [employer] Aircraft Technician: ES MEASUREMENT RESULTS: Intervals: Rate: 102 OR: 142 QRSD: 76 QT: 320 QTc: 417 [place]: P: 74 OR: 142 QRS: 65 T: 47 INTERPRETIVE STATEMENTS: Sinus tachycardia Otherwise normal ECG Compared to ECG 12/01/2020 07:45:39 Sinus rhythm no longer present Electronically Signed On 12-03-20 16:41:13 CDT by Daren Farmer
[2020-12-03] MEDS: IPRATROPIUM BROM 0.5MG/2.5ML NEB PRN (17:39)
[2020-12-03] MEDS: ALBUTEROL 2.5 MG/3 ML NEB SOL NEB PRN (17:39)
[2020-12-04] MEDS: METHYLPREDNISOLONE 125 MG INJ IV SCH ×4 (00:11→16:17)
[2020-12-04 04:25] LABS: Absolute Lymphocytes (CBC) 0.6 K/uL (0.7-4.9); Basophils % 0.2 % (0-1.3); Hematocrit 44.8 % (39.6-49.0); Lymphocytes % 3.1 % (15.3-44.8); MPV 7.8 fL (7.6-11.3); RBC Red Blood Cell Count 5.13 M/uL (4.33-5.43)
[2020-12-04 04:39] LABS: Potassium 4.4 mmol/L (3.5-5.1)
[2020-12-04 06:37] LABS: Blood Morphology Comment NOT SEEN (NOT SEEN); Platelet Estimate ADEQ
--- NOTE | 2020-12-04 07:58 | ECHO ---
HEIGHT: 6 ft 2 in WEIGHT: 242 lb 3.2 oz DATE OF STUDY: 12/03/[address]: marlyn jensen 2-DIMENSIONAL: YES M.MODE: YES DOPPLER: YES COLOR FLOW: YES TDS: YES PORTABLE: DEFINITY: BUBBLE STUDY: DIAGNOSIS: PULMONARY EDEMA CARDIAC HISTORY: CATHERIZATION: NO SURGERY: NO PROSTHETIC VALVE: NO PACEMAKER: NO MEASUREMENTS (cm) DIASTOLIC (NORMALS) SYSTOLIC (NORMALS) IVSd 1.0 (0.6-1.2) LA Diam 2.4 (1.9-4.0) LVEF 71% LVIDd 3.9 (3.5-5.7) LVIDs 2.4 (2.0-3.5) %FS 40% LVPWd 1.3 (0.6-1.2) Ao Diam 2.8 (2.0-3.7) 2 DIMENSIONAL ASSESSMENT: RIGHT ATRIUM: LEFT ATRIUM: RIGHT VENTRICLE: LEFT VENTRICLE: TRICUSPID VALVE: MITRAL VALVE: PULMONIC VALVE: AORTIC VALVE: PERICARDIAL EFFUSION: AORTIC ROOT: LEFT VENTRICULAR WALL MOTION: DOPPLER/COLOR FLOW: COMMENTS: NORMAL 2-DIMENSIONAL ECHOCARDIOGRAM WITH DOPPLER. NO WALL MOTION ABNORMALITY. NO EFFUSION. TECHNOLOGIST: SUE WILKERSON
[2020-12-04] MEDS: FUROSEMIDE 40 MG/4 ML VIAL IV SCH (08:47)
[2020-12-04] MEDS: CEFTRIAXONE 1 GM/NS 50 ML 1 GM/50 ML BAG IV SCH (08:48)
[2020-12-04] MEDS: AZITHROMYCIN IV 500 MG in NA CHLORIDE 0.9% 250 ML IVPB SCH (08:48)
[2020-12-04] MEDS: ENOXAPARIN 40 MG/0.4 ML SQ SCH (08:48)
[2020-12-04] MEDS: BENZONATATE 100 MG CAP PO PRN ×2 (08:49→18:06)
[2020-12-04] MEDS: IPRATROPIUM BROM 0.5MG/2.5ML NEB PRN ×2 (09:19→21:55)
[2020-12-04] MEDS: ALBUTEROL 2.5 MG/3 ML NEB SOL NEB PRN ×2 (09:19→21:55)
[2020-12-04 13:36] LABS: Arterial Blood Carboxyhemoglob 0.9 % (0-1.5); Blood Gas Oxyhemoglobin 93.9 % (94-97); Blood O2 Saturation 95.8 % (92-98.5)
--- NOTE | 2020-12-04 16:16 | P.PN ---
Subjective Date of Service: 12/04/20 Chief Complaint: pneumonia Patient complaining of intermittent cough and wheezing. Still on 4-5 L of oxygen by nasal cannula. He desaturates on room air. Physical Examination - Vital Signs Temperature: 98 F Blood Pressure: 117/58 Pulse: 95 Respirations: 20 Pulse Ox (%): 92 Assessment And Plan - Current Problems (Diagnosis) (1) Acute respiratory failure with hypoxia Current Visit: Yes Status: Acute (2) Reactive airway disease Current Visit: Yes Status: Acute - Plan Physical examination General: Not in acute distress. Eyes: Conjunctiva not pale. Neck: Supple, no lymphadenopathy. Lungs: Crackles heard on the right base. Adequate breath sounds bilaterally. Mild scattered rhonchi. Heart: Heart sounds 1 and 2 heard and normal, normal rate, regular rhythm. No murmur. Abdomen: Soft, nondistended, nontender, normal bowel sounds. Extremities: No pitting edema bilateral lower extremities, no digital cyanosis. Neurology: Oriented x3, no focal motor deficits, no sensory deficits. Psychiatry: Normal thought content, normal behavior, no agitated. Skin: Warm and dry. No rashes or ulcers. Assessment: Acute respiratory failure with hypoxia. Reactive airway disease. Pneumonia Plan: ABG reviewed. Continue IV Rocephin and Zithromax. Continue IV steroid. Patient given IV Lasix with no significant rsponse Wean oxygen as tolerated. Monitor CBC and blood chemistry. Pulmonary consult is pending.
[2020-12-05] MEDS: METHYLPREDNISOLONE 125 MG INJ IV SCH ×3 (00:13→07:50)
[2020-12-05 03:50] LABS: Absolute Lymphocytes (CBC) 0.5 K/uL (0.7-4.9); Basophils % 0.1 % (0-1.3); Hematocrit 43.6 % (39.6-49.0); Lymphocytes % 2.7 % (15.3-44.8); MPV 7.9 fL (7.6-11.3); RBC Red Blood Cell Count 4.93 M/uL (4.33-5.43)
[2020-12-05] MEDS: BENZONATATE 100 MG CAP PO PRN ×2 (07:50→14:04)
[2020-12-05] MEDS: ENOXAPARIN 40 MG/0.4 ML SQ SCH (07:51)
[2020-12-05] MEDS: CEFTRIAXONE 1 GM/NS 50 ML 1 GM/50 ML BAG IV SCH (07:51)
[2020-12-05] MEDS: AZITHROMYCIN IV 500 MG in NA CHLORIDE 0.9% 250 ML IVPB SCH (07:51)
[2020-12-05] MEDS: IPRATROPIUM BROM 0.5MG/2.5ML NEB PRN (08:28)
[2020-12-05] MEDS: ALBUTEROL 2.5 MG/3 ML NEB SOL NEB PRN ×2 (08:28→16:21)
[2020-12-05] MEDS: DULERA 200/5 (MOMETASONE/FORMOTEROL) INHALER IH SCH ×3 (09:00→21:31)
[2020-12-05] MEDS: levoFLOXacin 500 MG TAB PO SCH (10:40)
[2020-12-05 11:26] LABS: Blood Gas Oxyhemoglobin 89.9 % (94-97)
--- NOTE | 2020-12-05 12:51 | P.CNS ---
Date of Consult: 12/05/20 Reason for Consult: Respiratory failure Chief Complaint: Shortness of breath and cough History of Present Illness: Patient is a pleasant 50-year-old man has been sick for about 1-1/2-month complaining of persistent shortness of breath coughing he has had multiple visits to urgent care treated with antibiotics no relief came to the hospital because of severe chest discomfort never smoker no prior history of cardiopulmonary problems Allergies No Known Allergies Allergy (Unverified 12/02/20 23:42) Home Medications: NK [No Home Meds] 12/03/20 - Past Medical/Surgical History Diabetic: No Past Medical History: Patient denies medical history -: appy -: ACL repair - Family History Father Medical History: Heart disease Mother Medical History: Cancer - Social History Alcohol use: No CD- Drugs: No Caffeine use: No Place of Residence: Home Review of Systems 10-point ROS is otherwise unremarkable Respiratory: Cough, SOB with Excertion Physical Examination Temp Pulse Resp BP Pulse Ox 98 F 83 20 129/76 93 12/05/20 11:26 12/05/20 11:26 12/05/20 11:26 12/05/20 11:26 12/05/20 11:26 General: Alert, Oriented x3 Neck: Supple Respiratory: Clear to auscultation bilaterally Cardiovascular: No edema Gastrointestinal: Normal bowel sounds Musculoskeletal: No clubbing Integumentary: No rashes, No breakdown - Problems (1) Acute respiratory failure with hypoxia Current Visit: Yes Status: Acute Plan: Patient is 50 years of age admitted with cough shortness of breath prior history of cardiopulmonary problems does not smoke has had multiple visits to urgent care with no relief gases show mild hypoxemia white count was normal I suspect is elevated from steroid renal function is improving plan to discharge home on prednisone continue 20 mg twice a day for a week in addition to Advair or Symbicort patient's echocardiogram is normal CT scan is normal there is no evidence of pulmonary emboli PO2 on room air is 58 ambulate change him over to p.o. levofloxacin he is already had Zithromax before p.o. prednisone and an inhaler
--- NOTE | 2020-12-05 14:51 | P.PN ---
Subjective Date of Service: 12/05/20 Chief Complaint: Shortness of breath and cough Patient reports improvement in the shortness of breath and wheezing. He is currently tolerating 3 L oxygen by nasal cannula. No fever or chest pain reported. Physical Examination - Vital Signs Temperature: 98 F Blood Pressure: 129/76 Pulse: 83 Respirations: 20 Pulse Ox (%): 93 - Physical Exam General: Alert, In no apparent distress HEENT: Mucous membr. moist/pink Neck: JVD not distended Respiratory: Other (Mild scattered rhonchi) Cardiovascular: No edema, Regular rate/rhythm, Normal S1 S2, No murmurs Gastrointestinal: Soft and benign, Non-distended, No tenderness Musculoskeletal: No swelling Integumentary: No rashes, No cyanosis Neurological: Normal speech, Normal strength at 5/5 x4 extr Assessment And Plan - Current Problems (Diagnosis) (1) Acute respiratory failure with hypoxia Current Visit: Yes Status: Acute (2) Reactive airway disease Current Visit: Yes Status: Acute - Plan Physical examination General: Not in acute distress. Eyes: Conjunctiva not pale. Neck: Supple, no lymphadenopathy. Lungs: Adequate breath sounds bilaterally. Mild scattered rhonchi. Heart: Heart sounds 1 and 2 heard and normal, normal rate, regular rhythm. No murmur. Abdomen: Soft, nondistended, nontender, normal bowel sounds. Extremities: No pitting edema bilateral lower extremities, no digital cyanosis. Neurology: Oriented x3, no focal motor deficits, no sensory deficits. Psychiatry: Normal thought content, normal behavior, no agitated. Skin: Warm and dry. No rashes or ulcers. Assessment: Acute respiratory failure with hypoxia. Reactive airway disease. Pneumonia Leukocytosis-steroid induced. Hyperglycemia-steroid induced. Plan: Pulmonary input appreciated Antibiotics changed to oral Levaquin. IV steroid transition to oral prednisone. Added Advair inhaler. Off lasix. Wean oxygen as tolerated. Continue insulin sliding scale for hyperglycemia. ADA diet.
[2020-12-05] MEDS: predniSONE 20 MG TAB PO SCH (20:34)
[2020-12-05] MEDS ORDERED: DULERA 100/5 (MOMETASONE/FORMOTEROL) INHALER IH SCH (21:00)
[2020-12-06] MEDS: PROMETHAZINE-DM 5 ML OSYR PO PRN ×2 (01:57→20:21)
[2020-12-06 05:12] LABS: Absolute Lymphocytes (CBC) 0.4 K/uL (0.7-4.9); Basophils % 0.3 % (0-1.3); Hematocrit 43.7 % (39.6-49.0); Lymphocytes % 2.8 % (15.3-44.8); RBC Red Blood Cell Count 4.93 M/uL (4.33-5.43)
[2020-12-06 05:26] LABS: Potassium 3.9 mmol/L (3.5-5.1)
[2020-12-06] MEDS: predniSONE 20 MG TAB PO SCH ×2 (08:42→20:20)
[2020-12-06] MEDS: levoFLOXacin 500 MG TAB PO SCH (08:42)
[2020-12-06] MEDS: DULERA 200/5 (MOMETASONE/FORMOTEROL) INHALER IH SCH ×2 (08:42→20:22)
[2020-12-06] MEDS: ENOXAPARIN 40 MG/0.4 ML SQ SCH (08:42)
[2020-12-06] MEDS ORDERED: POTASSIUM CL SA 10 MEQ TAB PO ONE (09:00)
[2020-12-06] MEDS: IPRATROPIUM BROM 0.5MG/2.5ML NEB PRN ×2 (09:13→15:15)
[2020-12-06] MEDS: ALBUTEROL 2.5 MG/3 ML NEB SOL NEB PRN ×2 (09:13→15:15)
--- NOTE | 2020-12-06 15:32 | P.PN ---
Subjective Date of Service: 12/06/20 Chief Complaint: Shortness of breath and cough Patient respiratory status gradually improved. He is currently tolerating 2 L of oxygen by nasal cannula with SaO2 93-95%. Physical Examination - Vital Signs Temperature: 97.4 F Blood Pressure: 126/70 Pulse: 65 Respirations: 18 Pulse Ox (%): 95 - Physical Exam General: Alert, In no apparent distress HEENT: Mucous membr. moist/pink Neck: JVD not distended Respiratory: Other (Mild scattered rhonchi.) Assessment And Plan - Current Problems (Diagnosis) (1) Acute respiratory failure with hypoxia Current Visit: Yes Status: Acute (2) Reactive airway disease Current Visit: Yes Status: Acute - Plan Physical examination General: Not in acute distress. Eyes: Conjunctiva not pale. Neck: Supple, no lymphadenopathy. Lungs: Adequate breath sounds bilaterally. Mild scattered rhonchi. Heart: Heart sounds 1 and 2 heard and normal, normal rate, regular rhythm. No murmur. Abdomen: Soft, nontender, normal bowel sounds. Extremities: No pitting edema bilateral lower extremities, no digital cyanosis. Neurology: Oriented x3, no focal motor deficits. Psychiatry: Normal thought content, normal behavior. Skin: Warm and dry. No rashes or ulcers. Assessment: Acute respiratory failure with hypoxia. Reactive airway disease. Pneumonia Leukocytosis-steroid induced. Hyperglycemia-steroid induced. Plan: Leukocytosis is trending down. Fingerstick blood sugar readings have improved. Continue oral Levaquin. Oral prednisone. Advair inhaler. Continue insulin sliding scale for hyperglycemia. ADA diet. Wean oxygen to room air as tolerated.
[2020-12-06 21:12] VITALS: O2SAT 92
[2020-12-07 04:23] LABS: Absolute Lymphocytes (CBC) 0.6 K/uL (0.7-4.9); Basophils % 0.1 % (0-1.3); Hematocrit 43.7 % (39.6-49.0); Lymphocytes % 5.3 % (15.3-44.8); MPV 8.1 fL (7.6-11.3); RBC Red Blood Cell Count 4.95 M/uL (4.33-5.43)
[2020-12-07 04:36] LABS: Potassium 4.2 mmol/L (3.5-5.1)
[2020-12-07] MEDS: levoFLOXacin 500 MG TAB PO SCH (08:57)
[2020-12-07] MEDS: predniSONE 20 MG TAB PO SCH (08:58)
[2020-12-07] MEDS: ENOXAPARIN 40 MG/0.4 ML SQ SCH (08:58)
[2020-12-07] MEDS: DULERA 200/5 (MOMETASONE/FORMOTEROL) INHALER IH SCH (08:58)
--- NOTE | 2020-12-07 11:18 | P.PN ---
Subjective Date of Service: 12/07/20 Chief Complaint: Respiratory failure Subjective: Improving (Patient is improving ambulating mildly hypoxic) Review of Systems is unable to be obtained Physical Examination - Vital Signs Temperature: 96.9 F Blood Pressure: 133/80 Pulse: 57 Respirations: 18 Pulse Ox (%): 94 - Physical Exam General: Alert, Oriented x3 Respiratory: Clear to auscultation bilaterally Cardiovascular: No edema, Regular rate/rhythm Assessment & Plan - Problems (Diagnosis) (1) Acute respiratory failure with hypoxia Current Visit: Yes Status: Acute Plan: Patient admitted with hypoxemia of unknown origin scan echocardiogram unremarkable is doing much better ambulating white count is normal borderline hypoxemia discharged on p.o. levofloxacin for 5 days low-dose prednisone and an inhaler follow-up with me in 2 weeks labs reviewed vital signs stable
--- NOTE | 2020-12-07 12:02 | P.DS ---
Admission Date: 12/03/20 Discharge Date: 12/07/20 Disposition: ROUTINE DISCHARGE Discharge Condition: FAIR Reason for Admission: Respiratory failure - Problems (1) Acute respiratory failure with hypoxia Current Visit: Yes Status: Acute (2) Reactive airway disease Current Visit: Yes Status: Acute (3) Hyperglycemia Current Visit: Yes Status: Acute (4) Acute renal failure Current Visit: Yes Status: Acute Brief History of Present Illness: Mr. Cardona is a 50 yo M who presents with chronic cough, hypoxia and tachycardia. His cough began in the middle of September. He first went to urgent care mid October and was prescribed breathing treatments. After no improvement, he returned to urgent care and was diagnosed with pneumonia and prescribed a Zpack. He had repeat CXR done with PCP and was told the pneumonia was resolved. He came to the ED yesterday for worsening cough and back spasms. Presents with same complaints today, now tachycardic and hypoxic to 88%. He reports pleuriti c pain, dizziness, lightheadedness, cold sweats, pallor. He reports symptoms similar to this a few years ago. Denies smoking. Hospital Course: Patient admitted to the medical floor and treated for reactive airway disease. Treatment included IV steroid, IV antibiotics and bronchodilators. He initially required oxygen up to 5 L by nasal canula. He was seen in consultation by Dr. Langley-pulmonary. Patient's respiratory condition improved and gradually weaned off oxygen to room air. He is now tolerating room air with good oxygen saturation. He had GRIS which later resolved. He also developed steroid induced leukocytosis and hyperglycemia which all got resolved. Patient has clinically improved, symptoms improved and deemed stable for discharge. Vital Signs/Physical Exam: Temp Pulse Resp BP Pulse Ox 96.9 F 57 18 133/80 94 12/07/20 11:18 12/07/20 11:18 12/07/20 11:18 12/07/20 11:18 12/07/20 11:18 General: Alert, In no apparent distress, Oriented x3 HEENT: Mucous membr. moist/pink Neck: JVD not distended Respiratory: Clear to auscultation bilaterally, Normal air movement Cardiovascular: No edema, Regular rate/rhythm, Normal S1 S2 Gastrointestinal: Soft and benign, Non-distended, No tenderness Musculoskeletal: No swelling Integumentary: No rashes Neurological: Normal strength at 5/5 x4 extr Laboratory Data at Discharge: WBC 10.40 K/uL (4.3-10.9) D 12/07/20 03:35 Hgb 14.9 g/dL (13.6-17.9) 12/07/20 03:35 Hct 43.7 % (39.6-49.0) 12/07/20 03:35 Plt Count 202 K/uL (152-406) 12/07/20 03:35 PT 11.7 SECONDS (9.5-12.5) 12/02/20 18:41 INR 1.02 12/02/20 18:41 Sodium 145 mmol/L (136-145) 12/07/20 03:35 Potassium 4.2 mmol/L (3.5-5.1) 12/07/20 03:35 BUN 28 mg/dL (7-18) H 12/07/20 03:35 Creatinine 1.12 mg/dL (0.55-1.3) 12/07/20 03:35 Glucose 143 mg/dL (74-106) H 12/07/20 03:35 Phosphorus 1.7 mg/dL (2.5-4.9) L 12/03/20 02:54 Magnesium 2.1 mg/dL (1.8-2.4) 12/03/20 02:54 Total Bilirubin 0.6 mg/dL (0.2-1.0) 12/03/20 02:54 AST 17 U/L (15-37) 12/03/20 02:54 ALT 24 U/L (12-78) 12/03/20 02:54 Alkaline Phosphatase 68 U/L (45-117) 12/03/20 02:54 Home Medications: Benzonatate [Tessalon Perle*] 100 mg PO TID PRN #30 cap 12/07/20 Mometasone/Formoterol [Dulera 200 Mcg/5 Mcg Inhaler] 2 puff IH BID #1 inhaler 12/07/20 levoFLOXacin [Levaquin*] 500 mg PO DAILY #5 tab 12/07/20 predniSONE [Prednisone*] 20 mg PO BID #9 tab 12/07/20 New Medications: Mometasone/Formoterol [Dulera 200 Mcg/5 Mcg Inhaler] 2 puff IH BID #1 inhaler levoFLOXacin [Levaquin*] 500 mg PO DAILY #5 tab predniSONE [Prednisone*] 20 mg PO BID #9 tab Benzonatate [Tessalon Perle*] 100 mg PO TID PRN #30 cap PRN Reason: Cough Diet: AHA Activity: Ad gian Followup: Irvin Langley MD [ACTIVE - CAN ADMIT] - (Within 2 weeks. ) Unknown,U [Primary Care Provider] - Time spent managing pt's care (in minutes): 40
[2020-12-07 12:19] VITALS: BP 114/67; TEMP 97.4
== END 2020-12-07 12:45 | disposition home or self-care (01) | DRG 193 ==
LOC: ER 18:25 → ERHOLD 21:44 → 4TH 23:27 → OBSVTOIN 12-03 09:36
PROVIDERS: ADMIT Internal Medicine; ATTEND Internal Medicine
DX: J18.9 Pneumonia, unspecified organism (principal); J96.01 Acute respiratory failure with hypoxia; N17.9 Acute kidney failure, unspecified; J45.909 Unspecified asthma, uncomplicated; D72.829 Elevated white blood cell count, unspecified; R73.9 Hyperglycemia, unspecified; T38.0X5A Adverse effect of glucocorticoids and synthetic analogues, initial encounter; Y92.9 Unspecified place or not applicable; Z20.822 Contact with and (suspected) exposure to COVID-19
CPT/HCPCS: 36415; 71045; 71275; 80048; 80053; 80076; 81015; 82805; 82947; 83605; 83735; 83880; 84100; 84145; 84484; 85025; 85610; 87040; 93005; 93306; 94640; 94760; 96375; 99285; C9113; G0378; J0456; J0696; J1650; J1940; J2405; J2930; J7030; J7050; J7512; J7606; Q9967; U0003

== ENCOUNTER 2021-02-05 23:27 | Observation (INO) | payer OTHER, SELFPAY ==
[2021-02-06 00:29] LABS: Absolute Lymphocytes (CBC) 1.2 K/uL (0.7-4.9); Basophils % 0.8 % (0-1.3); Hematocrit 48.6 % (39.6-49.0); Lymphocytes % 14.9 % (15.3-44.8); MPV 7.8 fL (7.6-11.3); RBC Red Blood Cell Count 5.48 M/uL (4.33-5.43)
[2021-02-06 00:34] LABS: Protime INR 0.91
[2021-02-06 00:51] LABS: BUN Blood Urea Nitrogen 16 mg/dL (7-18); Bicarbonate 26 mmol/L (21-32); Glucose Level 116 mg/dL (74-106); NT PRO-BNP 29 pg/mL (<125); Sodium Level 141 mmol/L (136-145); Troponin (Emerg Dept Use Only) < 0.02 ng/mL (0.0-0.045)
[2021-02-06 00:52] LABS: Potassium 4.1 mmol/L (3.5-5.1)
[2021-02-06 01:52] LABS: SARS-COV-2 RT PCR POSITIVE (NEGATIVE)
--- NOTE | 2021-02-06 02:22 | ER ---
Nurse's Notes [facility] Name: Ollie Cardona Age: 50 yrs Sex: Male : 1970 Arrival Date: 02/05/2021 Time: 23:40 Bed 3 Private MD: Diagnosis: Pneumonia due to SARS-associated coronavirus;Hypoxemia Presentation: 02/05 23:42 Chief complaint: Patient states: C/O shortness of breath, cough and congestion X 1 day. ld1 Reports being admitted 1 month ago for pulmonary edema - states "this feels like last time." Upon arrival to ER pt SpO2 90% RA. Coronavirus screen: Client presents with at least one sign or symptom that may indicate coronavirus-19. Standard/surgical mask placed on the client. Ebola Screen: No symptoms or risks identified at this time. Initial Sepsis Screen: Does the patient meet any 2 criteria? No. Patient's initial sepsis screen is negative. Does the patient have a suspected source of infection? No. Patient's initial sepsis screen is negative. Risk Assessment: Do you want to hurt yourself or someone else? Patient reports no desire to harm self or others. Onset of symptoms was February 05, 2021 at 23:44. 23:42 Method Of Arrival: Ambulatory ld1 23:42 Acuity: LEXX 3 ld1 Triage Assessment: 23:44 General: Appears in no apparent distress. comfortable, Behavior is calm, cooperative, ld1 appropriate for age. Pain: Denies pain. Respiratory: Airway is patent Respiratory effort is even, unlabored, Respiratory pattern is regular, symmetrical. Historical: - Allergies: 23:44 No Known Allergies; ld1 - Home Meds: 23:44 None [Active]; ld1 - PMHx: 23:44 Pneumonia; Asthma; ld1 - PSHx: 23:44 ACL left knee; Appendectomy; ld1 - Immunization history:: Adult Immunizations up to date, Client reports receiving the 2nd dose of the Covid vaccine. - Social history:: Smoking status: Patient denies any tobacco usage or history of. Patient/guardian denies using alcohol. - Family history:: not pertinent. - Hospitalizations: : No recent hospitalization is reported. Screenin/23 00:19 Abuse screen: Denies threats or abuse. Denies injuries from another. Nutritional tw5 screening: No deficits noted. Tuberculosis screening: No symptoms or risk factors identified. Fall Risk No fall in past 12 months (0 pts). Secondary diagnosis (15 points) IV access (20 points). Gait- Normal/Bed Rest/Wheelchair (0 pts). Assessment: 00:19 Reassessment: Patient states feeling better. " I am feeling better now that I am on tw5 oxygen.". General: Reports " I have been feeling pretty had in the last hour, but before I just had a cold.". Pain: Denies pain. Neuro: Level of Consciousness is awake, alert, obeys commands, Oriented to person, place, time, situation. Cardiovascular: Rhythm is sinus rhythm. Respiratory: Airway is patent Trachea midline Respiratory effort is even, unlabored. 01:07 Reassessment: Patient states feeling better. Patient states symptoms have improved. tw5 02:13 Reassessment: Patient and/or family updated on plan of care and expected duration. Pain tw5 level reassessed. Patient is alert, oriented x 3, equal unlabored respirations, skin warm/dry/pink. " I am feeling a lot better from when I first arrived.". Vital Signs: 02/05 23:42 BP 121 / 90; Pulse 100; Resp 18; Temp 98.3(O); Pulse Ox 90% on R/A; Weight 104.33 kg; ld1 Height 6 ft. 2 in. (187.96 cm); Pain 0/10; 02/06 00:19 BP 132 / 84; Pulse 75; Resp 16; Pulse Ox 94% on 2 lpm NC; tw5 01:07 BP 115 / 85; Pulse 72; Resp 16; Pulse Ox 93% on R/A; tw5 02:13 BP 108 / 69; Pulse 70; Resp 12; Pulse Ox 97% on R/A; tw5 02/05 23:42 Body Mass Index 29.53 (104.33 kg, 187.96 cm) ld1 ED Course: 02/05 23:40 Patient arrived in ED. ja2 23:42 Errol Bonner, LAUREN is Primary Nurse. as6 23:44 Triage completed. ld1 23:44 Arm band placed on right wrist. ld1 23:47 Victorino Osorio MD is Attending Physician. rn 02/06 00:02 XRAY CXR (1 view) In Process Unspecified. EDMS 00:12 COVID-19/FLU A+B (Document "Date of Onset" if Symptomatic) Sent. as6 00:12 Lactate Sent. as6 00:12 Procalcitonin Sent. as6 00:19 EKG done, by ED staff. tw5 00:57 Placed in gown. Bed in low position. Call light in reach. Side rails up X2. Adult w/ as6 patient. account services manager on. Pulse ox on. NIBP on. 01:[address] via stretcher. tw5 01:18 Oxygen administration via nasal cannula \\T\\ 2L/min. tw5 01:19 Primary Nurse role handed off by Errol Bonner, LAUREN tw5 01:19 Pooja Cristina is Primary Nurse. tw5 02:17 Chest For Pe Angio In Process Unspecified. EDMS 02:21 Lucho Trujillo DO is Hospitalizing Provider. rn 03:03 No provider procedures requiring assistance completed. Patient admitted, IV remains in tw5 place. Administered Medications: 00:30 Drug: SOLU-Medrol (methylPrednisoLONE) 125 mg Route: IVP; Site: right antecubital; tw5 03:07 Follow up: Response: No adverse reaction tw5 00:33 Drug: Xopenex (levalbuterol) 1.25 mg Route: Inhalation; tw5 03:07 Follow up: Response: No adverse reaction tw5 Outcome: 02:21 Decision to Hospitalize by Provider. rn 03:03 Admitted to Med/surg accompanied by tech, room 415, with oxygen, with chart, Report tw5 called to Adithya 03:03 Condition: good 03:03 Instructed on the need for admit. 03:04 Patient left the ED. tw5 Signatures: Dispatcher [employer] EDND Victorino Osorio MD MD rn Dibbern, Lauren, RN RN [email or web address] Mely Marshall Tiffany tw5 Errol Bonner RN RN as6
--- NOTE | 2021-02-06 02:22 | EDPHYS ---
Physician Documentation [facility] Name: Ollie Cardona Age: 50 yrs Sex: Male : 1970 Arrival Date: 02/05/2021 Time: 23:40 Bed 3 Private MD: ED Physician Victorino Osorio HPI: 02/06 00:48 This 50 yrs old Male presents to ER via Ambulatory with complaints of Shortness of rn breath. 00:48 The patient has shortness of breath at rest, with light activity. Onset: The rn symptoms/episode began/occurred just prior to arrival. Duration: The symptoms are intermittent. The patient's shortness of breath is aggravated by coughing, exertion, is alleviated by nothing. Associated signs and symptoms: Pertinent positives: productive cough, Pertinent negatives: fever, hemoptysis. Severity of symptoms: At their worst the symptoms were moderate in the emergency department the symptoms have improved. The patient has experienced a previous episode. The patient has not recently seen a physician. Patient reports shortness of breath that began prior to arrival. Reports 2 days of productive cough and congestion. States like he feels like he has a cold. This is happened once before and was admitted, but was unclear if it was pneumonia versus pulmonary edema versus reactive airway disease versus allergic reaction. Has not been using his inhalers. No known sick contacts. No trauma.. Historical: - Allergies: 02/05 23:44 No Known Allergies; ld1 - Home Meds: 23:44 None [Active]; ld1 - PMHx: 23:44 Pneumonia; Asthma; ld1 - PSHx: 23:44 ACL left knee; Appendectomy; ld1 - Immunization history:: Adult Immunizations up to date, Client reports receiving the 2nd dose of the Covid vaccine. - Social history:: Smoking status: Patient denies any tobacco usage or history of. Patient/guardian denies using alcohol. - Family history:: not pertinent. - Hospitalizations: : No recent hospitalization is reported. ROS: 02/06 00:48 Constitutional: Negative for fever, chills, and weight loss, Eyes: Negative for injury, rn pain, redness, and discharge, ENT: Positive for nasal congestion Neck: Negative for injury, pain, and swelling, Cardiovascular: Negative for chest pain, palpitations, and edema, Respiratory: Negative for wheezing, and pleuritic chest pain, Abdomen/GI: Negative for abdominal pain, nausea, vomiting, diarrhea, and constipation, Back: Negative for injury and pain, MS/Extremity: Negative for injury and deformity, Skin: Negative for injury, rash, and discoloration, Neuro: Negative for headache, weakness, numbness, tingling, and seizure. Exam: 00:42 ECG was reviewed by the Attending Physician. rn 00:48 Constitutional: This is a well developed, well nourished patient who is awake, alert, rn appears anxious Head/Face: Normocephalic Eyes: Periorbital areas with no swelling, redness, or edema. ENT: Dry mucous membranes, no stridor, constantly clearing throat like has postnasal drip Cardiovascular: Regular rate and rhythm. No pulse deficits. Respiratory: Speaking full sentences, unlabored. No increased work of breathing, no retractions or nasal flaring. Abdomen/GI: Soft, non-tender Skin: Warm, dry MS/ Extremity: Pulses equal, no cyanosis. Neurovascular intact. Full, normal range of motion. Equal circumference. Neuro: Awake and alert, GCS 15 Vital Signs: 02/05 23:42 BP 121 / 90; Pulse 100; Resp 18; Temp 98.3(O); Pulse Ox 90% on R/A; Weight 104.33 kg; ld1 Height 6 ft. 2 in. (187.96 cm); Pain 0/10; 02/06 00:19 BP 132 / 84; Pulse 75; Resp 16; Pulse Ox 94% on 2 lpm NC; tw5 01:07 BP 115 / 85; Pulse 72; Resp 16; Pulse Ox 93% on R/A; tw5 02:13 BP 108 / 69; Pulse 70; Resp 12; Pulse Ox 97% on R/A; tw5 02/05 23:42 Body Mass Index 29.53 (104.33 kg, 187.96 cm) ld1 MDM: 02/05 23:48 Patient medically screened. rn 02/06 01:26 Data interpreted: Pulse oximetry: on room air is 90 %. Interpretation: hypoxia. Plan: rn O2 by NC applied. 02:20 Differential diagnosis: pneumonia, Pneumothorax pulmonary edema, Pulmonary Embolism rn reactive airway disease, Sepsis. Data reviewed: vital signs, nurses notes, lab test result(s), radiologic studies, CT scan, plain films, and as a result, I will admit patient. Counseling: I had a detailed discussion with the patient and/or guardian regarding: the historical points, exam findings, and any diagnostic results supporting the discharge/admit diagnosis, lab results, radiology results, the need for further work-up and treatment in the hospital. Response to treatment: the patient's symptoms have mildly improved after treatment, and as a result, I will admit patient. Admission orders: after a detailed discussion of the patient's condition and case, the admit orders are written by me. 02/05 23:49 Order name: BMP rn 02/05 23:49 Order name: Blood Culture Adult (2) rn 02/05 23:49 Order name: CBC with Diff; Complete Time: 00:46 02/05 23:49 Order name: D-Dimer; Complete Time: 00:46 02/05 23:49 Order name: NT PRO-BNP 02/05 23:49 Order name: PT-INR; Complete Time: 00:46 02/05 23:49 Order name: Ptt, Activated; Complete Time: 00:46 02/05 23:49 Order name: Troponin (emerg Dept Use Only) 02/05 23:49 Order name: XRAY CXR (1 view) 02/05 23:49 Order name: COVID-19/FLU A+B (Document "Date of Onset" if Symptomatic); Complete Time: rn 02:20 02/05 23:56 Order name: Procalcitonin 02/05 23:56 Order name: Lactate; Complete Time: 00:46 02/06 02:24 Order name: C-Reactive Protein [facility] 02/05 23:49 Order name: EKG; Complete Time: 23:50 rn 02/05 23:49 Order name: Cardiac monitoring; Complete Time: 00:12 rn 02/05 23:49 Order name: EKG - Nurse/Tech; Complete Time: 00:18 rn 02/05 23:49 Order name: IV Saline Lock; Complete Time: 00:12 rn 02/05 23:49 Order name: Labs collected and sent; Complete Time: 00:12 rn 02/05 23:49 Order name: O2 Per Protocol; Complete Time: 00:12 rn 02/05 23:49 Order name: O2 Sat Monitoring; Complete Time: 00:12 rn 02/06 00:39 Order name: Chest For Pe Angio EDMS EC:42 Rate is 73 beats/min. Rhythm is regular. QRS [place] is Normal. [place] interval is normal. QRS rn interval is normal. QT interval is normal. No Q waves. T waves are Normal. No ST changes noted. Clinical impression: Normal ECG. Interpreted by me. Reviewed by me. Administered Medications: 00:30 Drug: SOLU-Medrol (methylPrednisoLONE) 125 mg Route: IVP; Site: right antecubital; tw 03:07 Follow up: Response: No adverse reaction tw 00:33 Drug: Xopenex (levalbuterol) 1.25 mg Route: Inhalation; 03:07 Follow up: Response: No adverse reaction Disposition Summary: 02/06/21 02:21 Hospitalization Ordered Hospitalization Status: Inpatient Admission rn Provider: Lucho Trujillo rn Location: Telemetry/MedSurg (Inpatient) rn Condition: Stable rn Problem: new rn Symptoms: have improved rn Bed/Room Type: Standard rn Room Assignment: [facility](02/06/21 02:50) eb Diagnosis - Pneumonia due to SARS-associated coronavirus rn - Hypoxemia rn Forms: - Medication Reconciliation Form rn - SBAR form rn Signatures: Dispatcher [employer] EDMS Victorino Osorio MD MD rn Basinger, Emily RN RN eb1 Lizabeth Higuera RN RN Pooja Mustafa tw5 Corrections: (The following items were deleted from the chart) 01:05 00:38 Chest For PE Angio+CT.RAD.BRZ ordered. EDMS EDMS 02:23 02:21 C-REACTIVE PROTEIN+C.LAB.BRZ ordered. EDMS EDMS 02:50 02:21 rn eb1
[2021-02-06 03:06] LABS: C-Reactive Protein < 2.90 mg/L (<3.00)
--- NOTE | 2021-02-06 03:06 | P.HP ---
Certification for Inpatient Patient admitted to: Observation With expected LOS: <2 Midnights Patient will require the following post-hospital care: None Practitioner: I am a practitioner with admitting privileges, knowledge of patient current condition, hospital course, and medical plan of care. Services: Services provided to patient in accordance with Admission requirements found in Title 42 Section 412.3 of the Code of Federal Regulations Patient History Date of Service: 02/06/21 Reason for admission: COVID-19 pneumonia History of Present Illness: 50-year-old male with no significant past known medical history presents emergency department for shortness of breath, cough near syncopal episode. Patient reports last 2 days he has congestion and upper respiratory symptoms had a near syncopal episode after coughing fit in the shower and came to the emergency department. Labs were significant for D-dimer 590 sodium 141 chloride 109 GFR 60 glucose 116 C-reactive protein pending Covid test positive chest x-ray unremarkable CT shows groundglass opacities bilaterally without any pulmonary embolism or other acute findings. Patient was 90% on room air upon arrival to the ER, currently around 91 to 92% on room air. ED provider wishes to admit for further evaluation and management of COVID-19 pneumonia. Allergies No Known Allergies Allergy (Unverified 12/02/20 23:42) Home Medications: Benzonatate [Tessalon Perle*] 100 mg PO TID PRN #30 cap 12/07/20 Mometasone/Formoterol [Dulera 200 Mcg/5 Mcg Inhaler] 2 puff IH BID #1 inhaler 12/07/20 levoFLOXacin [Levaquin*] 500 mg PO DAILY #5 tab 12/07/20 predniSONE [Prednisone*] 20 mg PO BID #9 tab 12/07/20 - Past Medical/Surgical History Diabetic: No -: Asthma? 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 moist/pink, EOMI, Sclerae nonicteric Neck: Supple, 2+ carotid pulse no bruit, No LAD, Without JVD or thyroid abnormality Respiratory: Normal air movement, Diminished Cardiovascular: Regular rate/rhythm, Normal S1 S2 Gastrointestinal: Normal bowel sounds, No tenderness Musculoskeletal: No tenderness Integumentary: No rashes Neurological: Normal speech, Normal strength at 5/5 x4 extr, Normal tone, Normal affect - Studies Laboratory Data (last 24 hrs) 02/06/21 00:00: PT 10.5, INR 0.91, APTT 26.2 02/06/21 00:00: WBC 8.10, Hgb 16.3, Hct 48.6, Plt Count 212 02/06/21 00:00: Sodium 141, Potassium 4.1, BUN 16, Creatinine 1.26, Glucose 116 H Assessment and Plan - Plan Assessment: Dyspnea, hypoxia secondary to COVID-19 pneumonia Plan: Dyspnea, hypoxia secondary to COVID-19 pneumonia: Continue with IV steroids, supplemental oxygen as needed, as needed antitussives. Daily room air saturations, room air saturation for home oxygen. Patient room air saturations currently around 90-91. If patient maintains current status can likely be discharged afternoon with or without home oxygen. DVT PPX: Lovenox Code status: Full Discharge Plan: Home Plan to discharge in: 24 Hours - Advance Directives Does patient have a Living Will: No Does patient have a Durable POA for Healthcare: No - Code Status/Comfort Care Code Status Assessed: Yes (Full code) Critical Care: No Time Spent Managing Pts Care (In Minutes): 55
[2021-02-06] MEDS ORDERED: IPRATROPIUM BROM 0.5MG/2.5ML NEB PRN (03:47)
[2021-02-06] MEDS ORDERED: ACETAMINOPHEN 500 MG TAB PO PRN (03:47)
[2021-02-06] MEDS ORDERED: BENZONATATE 100 MG CAP PO PRN (03:47)
[2021-02-06] MEDS ORDERED: ONDANSETRON 4 MG/2 ML VIAL IV PRN (03:47)
[2021-02-06] MEDS ORDERED: ALBUTEROL 2.5 MG/3 ML NEB SOL NEB PRN (03:47)
[2021-02-06 05:35] VITALS: BMI 29.5
--- NOTE | 2021-02-06 06:09 | P.PN ---
Subjective Date of Service: 02/06/21 Primary Care Provider: Dr. Paz Chief Complaint: COVID-19 pneumonia Subjective: Improving, Doing well Physical Examination - Vital Signs Temperature: 96.9 F Blood Pressure: 100/66 Pulse: 63 Respirations: 19 Pulse Ox (%): 91 - Studies Laboratory Data (last 24 hrs) 02/06/21 00:00: PT 10.5, INR 0.91, APTT 26.2 02/06/21 00:00: WBC 8.10, Hgb 16.3, Hct 48.6, Plt Count 212 02/06/21 00:00: Sodium 141, Potassium 4.1, BUN 16, Creatinine 1.26, Glucose 116 H Assessment & Plan Discharge Plan: Home Plan to discharge in: 24 Hours Physician Review Additional Text: COVID: Positive CT scan: Findings The lungs parenchyma demonstrate dependent atelectatic changes slightly decreased lung volumes. No masses, nodules and/or consolidations identified. No evidence of pneumothorax. Trachea mainstem bronchus demonstrates to be normal. No significant pericardial or pleural effusions. The thoracic aorta demonstrates to be unremarkable. The heart is normal in size. No evidence of right ventricular strain. There is no coronary artery calcifications. There is no significant mediastinal and/or hilar adenopathy. Axillary regions demonstrate to be clear. Pulmonary arteries demonstrate to be normal. No intraluminal defect are seen that would suggest pulmonary embolism. Bone windows demonstrate no significant skeletal lesions. The visualized portions of the upper abdomen demonstrate to be unremarkable. Impression No evidence of pulmonary embolism and or/thoracic aortic dissection. Minimal dependent atelectatic changes slightly decreased lung volume. No significant interval changes in comparison with prior study. Physical exam: General: Alert, In no apparent distress, Oriented x3 HEENT: Atraumatic, PERRLA, Mucous membr. moist/pink, EOMI, Sclerae nonicteric Neck: Supple, 2+ carotid pulse no bruit, No LAD, Without JVD or thyroid abnormality Respiratory: Normal air movement, Diminished Cardiovascular: Regular rate/rhythm, Normal S1 S2 Gastrointestinal: Normal bowel sounds, No tenderness Musculoskeletal: No tenderness Integumentary: No rashes Neurological: Normal speech, Normal strength at 5/5 x4 extr, Normal tone, Normal affect Impression: Dyspnea, hypoxia secondary to COVID-19 pneumonia with history of asthma Plan: Dyspnea, hypoxia secondary to COVID-19 pneumonia with history of asthma: Patient doing well at this time. Patient currently on room air. Patient able to tolerate walking in place without difficulty with shortness of breath. We will plan for discharge today. We will continue with prednisone at discharge. We will continue with Dulera and Advair for his asthma at home. Patient may continue with zinc, vitamin D and aspirin 81 mg daily at home. Patient will need to continue with quarantine for at least 10 days. Continue with CDC guidelines on Covid. Recommend to continue face mask use, handwashing, social distancing. Recommend follow-up with pulmonology in 1 to 2 weeks to follow-up his hospitalization. Recommend follow-up with PCP in 1 week to follow-up his hospitalization. Will check to see if the patient requires oxygen at discharge. So far no need at this time. DVT PPX: Lovenox Code status: Full code Discharge Plan: Home at discharge Time Spent Managing Pts Care (In Minutes): 55
--- NOTE | 2021-02-06 07:58 | P.DS ---
Admission Date: 02/06/21 Discharge Date: 02/06/21 Primary Care Provider: Dr. Paz; Pulmonary-Dr. Langley Disposition: ROUTINE DISCHARGE Discharge Condition: GOOD Reason for Admission: COVID-19 pneumonia Consultations: none Procedures: COVID: Positive CT scan: Findings The lungs parenchyma demonstrate dependent atelectatic changes slightly decreased lung volumes. No masses, nodules and/or consolidations identified. No evidence of pneumothorax. Trachea mainstem bronchus demonstrates to be normal. No significant pericardial or pleural effusions. The thoracic aorta demonstrates to be unremarkable. The heart is normal in size. No evidence of right ventricular strain. There is no coronary artery calcifications. There is no significant mediastinal and/or hilar adenopathy. Axillary regions demonstrate to be clear. Pulmonary arteries demonstrate to be normal. No intraluminal defect are seen that would suggest pulmonary embolism. Bone windows demonstrate no significant skeletal lesions. The visualized portions of the upper abdomen demonstrate to be unremarkable. Impression No evidence of pulmonary embolism and or/thoracic aortic dissection. Minimal dependent atelectatic changes slightly decreased lung volume. No significant interval changes in comparison with prior study. Medical Problem List: Dyspnea, hypoxia secondary to COVID-19 pneumonia with history of asthma Brief History of Present Illness: 50-year-old male with history of asthma. Patient presented with shortness of breath, cough and near syncope. Patient reports symptoms of congestion and upper respiratory symptoms for the past 3 days. Symptoms worsen. He came to the ER for further evaluation. CT scan showed no evidence of pulmonary embolism or consolidation or pleural effusion. Room air saturations around and above 90%. Patient was admitted for observation. Patient has been fully vaccinated for Covid. Hospital Course: Patient presented with dyspnea, cough and mild hypoxia secondary to Covid p neumonia. Patient with history of asthma. Room air saturations within normal range. Patient was admitted for observation. Patient reports history of asthma in the past. Patient has used medication in the past. He has not been using anything recently. Patient received IV steroids and breathing treatments. His condition has improved. Current room air saturations within normal range. No significant cough noted. Patient able to ambulate appropriately without significant shortness of breath. At discharge the patient will continue with prednisone 20 mg 1 pill twice daily for 7 days then 1 pill once daily for 7 days. The patient will continue with Dulera 2 puff twice daily and albuterol 2 puffs 3 times a day as needed for shortness of breath. Patient will be provided Tessalon Perles 100 mg twice daily as needed for cough. Patient may continue with aspirin 81 mg daily, zinc 220 mg daily, and vitamin D 2000 units daily as well. At discharge recommend to continue CDC guidelines on Covid. Patient will continue with quarantine for at least 10 days. Continue handwashing, face mask use, and social distancing. Education on asthma will be provided. Recommend follow-up with PCP in 1 week to follow-up his hospitalization. Recommend follow-up with his maintenance helper in 1 to 2 weeks to follow-up his hospitalization as well. Will verify if patient will require oxygen at dischar ge. If so we will arrange. Vital Signs/Physical Exam: Temp Pulse Resp BP Pulse Ox 96.9 F 63 19 100/66 91 02/06/21 07:57 02/06/21 07:57 02/06/21 07:57 02/06/21 07:57 02/06/21 07:57 General: Alert, In no apparent distress, Oriented x3, Cooperative HEENT: Atraumatic Neck: Supple Respiratory: Clear to auscultation bilaterally, Normal air movement Cardiovascular: Normal pulses, Regular rate/rhythm Gastrointestinal: Normal bowel sounds, No tenderness, No masses, No rebound, No guarding Musculoskeletal: No erythema, No tenderness, No warmth Integumentary: No tenderness/swelling, No erythema, No warmth, No cyanosis Neurological: Normal speech, Normal strength at 5/5 x4 extr, Normal tone Laboratory Data at Discharge: WBC 8.10 K/uL (4.3-10.9) 02/06/21 00:00 Hgb 16.3 g/dL (13.6-17.9) 02/06/21 00:00 Hct 48.6 % (39.6-49.0) 02/06/21 00:00 Plt Count 212 K/uL (152-406) 02/06/21 00:00 PT 10.5 SECONDS (9.5-12.5) 02/06/21 00:00 INR 0.91 02/06/21 00:00 APTT 26.2 SECONDS (24.3-36.9) 02/06/21 00:00 Sodium 141 mmol/L (136-145) 02/06/21 00:00 Potassium 4.1 mmol/L (3.5-5.1) 02/06/21 00:00 BUN 16 mg/dL (7-18) 02/06/21 00:00 Creatinine 1.26 mg/dL (0.55-1.3) 02/06/21 00:00 Glucose 116 mg/dL (74-106) H 02/06/21 00:00 Home Medications: Albuterol Inhaler [Ventolin Inhaler*] 2 puff IH TID PRN #1 hfa.aer.ad 02/06/21 Aspirin [Aspirin EC 81 MG] 81 mg PO DAILY #90 tablet. 02/06/21 Benzonatate [Tessalon Perle*] 100 mg PO BID PRN #10 cap 02/06/21 Cholecalciferol (Vitamin D3) [Vitamin D 1000 Iu Tab*] 2,000 unit PO DAILY #60 tab 02/06/21 Mometasone/Formoterol [Dulera 200 Mcg/5 Mcg Inhaler] 2 puff IH BID #1 inhaler 02/06/21 Zinc Sulfate [Zinc Sulfate*] 220 mg PO DAILY #30 cap 02/06/21 predniSONE [Prednisone*] 20 mg PO SEECOM #21 tab 02/06/21 New Medications: Aspirin [Aspirin EC 81 MG] 81 mg PO DAILY #90 tablet. Mometasone/Formoterol [Dulera 200 Mcg/5 Mcg Inhaler] 2 puff IH BID #1 inhaler predniSONE [Prednisone*] 20 mg PO SEECOM #21 tab Benzonatate [Tessalon Perle*] 100 mg PO BID PRN #10 cap PRN Reason: Cough Albuterol Inhaler [Ventolin Inhaler*] 2 puff IH TID PRN #1 hfa.aer.ad PRN Reason: Shortness Of Breath Cholecalciferol (Vitamin D3) [Vitamin D 1000 Iu Tab*] 2,000 unit PO DAILY #60 tab Zinc Sulfate [Zinc Sulfate*] 220 mg PO DAILY #30 cap Physician Discharge Instructions: Patient presented with dyspnea, cough and mild hypoxia secondary to Covid pneumonia. Patient with history of asthma. Room air saturations within normal range. Patient was admitted for observation. Patient reports history of asthma in the past. Patient has used medication in the past. He has not been using anything recently. Patient received IV steroids and breathing treatments. His condition has improved. Current room air saturations within normal range. No significant cough noted. Patient able to ambulate appropriately without significant shortness of breath. At discharge the patient will continue with prednisone 20 mg 1 pill twice daily for 7 days then 1 pill once daily for 7 days. The patient will continue with Dulera 2 puff twice daily and albuterol 2 puffs 3 times a day as needed for shortness of breath. Patient will be provided Tessalon Perles 100 mg twice daily as needed for cough. Patient may continue with aspirin 81 mg daily, zinc 220 mg daily, and vitamin D 2000 units daily as well. At discharge recommend to continue CDC guidelines on Covid. Patient will continue with quarantine for at least 10 days. Continue handwashing, face mask use, and social distancing. Education on asthma will be provided. Recommend follow-up with PCP in 1 week to follow-up his hospitalization. Recommend follow-up with his maintenance helper in 1 to 2 weeks to follow-up his hospitali zation as well. Will verify if patient will require oxygen at discharge. If so we will arrange. Diet: AHA Activity: Ad gian Followup: NONE,NONE [Primary Care Provider] - Time spent managing pt's care (in minutes): 55
[2021-02-06 08:57] VITALS: BP 103/65; TEMP 97
[2021-02-06] MEDS ORDERED: ZINC SULFATE 220 MG CAP PO SCH (09:00)
[2021-02-06] MEDS ORDERED: VITAMIN D 1000 UNIT TAB PO SCH (09:00)
[2021-02-06] MEDS ORDERED: ENOXAPARIN 40 MG/0.4 ML SQ SCH (09:00)
[2021-02-06] MEDS ORDERED: ASCORBIC ACID 500 MG TABLET PO SCH (09:00)
[2021-02-06] MEDS ORDERED: DULERA 200/5 (MOMETASONE/FORMOTEROL) INHALER IH SCH (09:00)
[2021-02-06] MEDS ORDERED: METHYLPREDNISOLONE 125 MG INJ IV SCH (09:00)
--- NOTE | 2021-02-06 10:05 | RAD REPORT ---
EXAM DESCRIPTION: CT - Chest For Pe Angio - 02/06/2021 5:32 am.\ CLINICAL HISTORY: 50 years, Male, DYSPNEA COMPARISON: 12/02/2020 TECHNIQUE: Multiple transaxial tomograms of the chest were obtained from the lung apices through the lung bases utilizing 2 mm slice thickness at 2 mm interval reconstruction after the administration o f large bolus of IV contrast for complete opacification of the pulmonary arteries. Subsequent 3-D maximum intensity projection images were generated in the coronal and sagittal plane f or review. This exam was performed according to our departmental dose-optimization protocol, which includes auto mated exposure control, adjustment of the mA and/or kV according to patient size and/or use of iterat doretha reconstruction technique. FINDINGS: The lungs parenchyma demonstrate dependent atelectatic changes slightly decreased lung vol ume. No masses, nodules and/or consolidations are identified. There is no evidence for pneumothorax. The trachea mainstem bronchus demonstrate to be normal. There is no significant pericardial or pleura l effusions. The thoracic aorta demonstrate to be unremarkable. The heart is normal in size. No evidence for right ventricular strain. There are no coronary artery calcifications. There is no significant mediastinal and/or hilar lymphadenopathy. The axillary regions demonstrate to be clear. Pulmonary arteries demonstrate to be normal, no intraluminal defect are seen that would suggest pulmo nary embolus. The bone windows demonstrate no significant skeletal lesions. The visualized portions of the upper abdomen demonstrate to be unremarkable. IMPRESSION: No evidence for pulmonary embolus and/or thoracic aortic dissection. Minimal dependent atelectatic changes slightly decreased lung volume. No significant interval change in comparison with prior study. Electronically signed by: Sang Cortez MD 02/06/2021 2:47 AM TAR LEVELER Due to temporary technical issues with the PACS/Fluency reporting system, reports are being signed by the in house radiologist without review as a courtesy to ensure prompt reporting. The interpreting r adiologist is fully responsible for the content of the report.
--- NOTE | 2021-02-06 10:07 | RAD REPORT ---
EXAM DESCRIPTION: RAD - Chest Single View - 02/06/2021 12:01 am CLINICAL HISTORY: 50 years, Male, Cough;Dyspnea COMPARISON: None. FINDINGS: Single view of the chest was obtained portable. No prior films are available for compariso n. The cardiomediastinal silhouette demonstrate to be unremarkable. The heart is not enlarged. The thoracic aorta is unremarkable. Costophrenic angles are sharp. No areas of consolidation or masses are seen. External EKG leads within the [id number] limits diagnosis. The rest of the soft tissue and bony structures demonstrate to be unremarkable. IMPRESSION: NO ACUTE CARDIOPULMONARY DISEASE SEEN. Electronically signed by: Sang Cortez MD 02/06/2021 12:16 AM JUNIOR ART DIRECTOR Due to temporary technical issues with the PACS/Fluency reporting system, reports are being signed by the in house radiologist without review as a courtesy to ensure prompt reporting. The interpreting r adiologist is fully responsible for the content of the report.
[2021-02-06 10:16] VITALS: O2SAT 98
== END 2021-02-06 10:30 | disposition home or self-care (01) ==
LOC: ER 23:27 → INTOOBSV 02-06 02:44 → ERHOLD 02-06 02:44 → 4TH 02-06 02:56
PROVIDERS: ADMIT Family Medicine; ATTEND Family Medicine
DX: U07.1 COVID-19 (principal); J12.82 Pneumonia due to coronavirus disease 2019; R09.02 Hypoxemia; J45.909 Unspecified asthma, uncomplicated
CPT/HCPCS: 93005; 87040 ×2; 85025; 80048; 36415; 85610; 85379; 83605; 85730; 84484; 84145; 83880; 0240U; 86140; 71275; 71045; 96374; 99285; Q9967; J1650; J2930; G0378; J7606